=== PATIENT | female | born 1935 | race Caucasian/White ===

== ENCOUNTER 2019-03-08 06:36 | Emergency (ER) | payer OTHER, BC ==
--- OUTSIDE RECORDS SUMMARY | 2019-03-08 06:39 | XMS REPORT ---
:1935 [facility] Address [address] [place] [address] Dr. Soto [address] [place] [address] Care Team Providers Name Role Phone Unavailable Unavailable Unavailable Problems This patient has no known problems. Allergies, Adverse Reactions, Alerts This patient has no known allergies or adverse reactions. Medications This patient has no known medications.
--- OUTSIDE RECORDS SUMMARY | 2019-03-08 06:39 | XMS REPORT | Summary of Care ---
:1935 Author Organization [facility] - Health Address [address] [place] [id number] Care Team Providers Name Role Phone Pcp, Patient Does Not Have A Primary Care Provider Encounter Details Date Type Department Care Team Description 2018 Orders Only [facility] Doctor Unassigned, No 301 [facility] Name [address] [address] Allergies Active Allergy Reactions Severity Noted Date Comments Penicillins Unknown - See comments 09/13/2017 documented as of this encounter (statuses as of 11/02/2018) Medications Medication Sig Dispensed Refills Start Date End Date Status fluticasone-salmeterol Inhale 1 Puff 0 Active (ADVAIR DISKUS) 250-50 at bedtime. mcg/dose inhalation disk acetaminophen-codeine Take 1 tablet 30 tablet 0 08/05/2018 Active (TYLENOL-CODEINE #4) by mouth every 300-60 mg 4 (four) hours tabletIndications: Closed as needed for comminuted Pain. intertrochanteric fracture of left femur, initial encounter documented as of this encounter (statuses as of 11/02/2018) Active Problems Problem Noted Date Hip fracture due to osteoporosis 08/03/2018 Closed comminuted intertrochanteric fracture of left femur 08/02/2018 Closed right hip fracture 09/13/2017 Protein-calorie malnutrition, moderate 09/13/2017 documented as of this encounter (statuses as of 11/02/2018) Social History Tobacco Use Types Packs/Day Years Used Date Never Smoker Smokeless Tobacco: Never Used Alcohol Use Drinks/Week oz/Week Comments No Sex Assigned at Date Recorded Not on file Job Start Date Occupation Industry Not on file Not on file Not on file Travel History Travel Start Travel End No recent travel history available. documented as of this encounter Last Filed Vital Signs Not on filedocumented in this encounter Plan of Treatment Health Maintenance Due Date Last Done Comments DTaP,Tdap,and Td Vaccines (1 - Tdap) 10/16/1954 Zoster Recombinant Vaccine (SHINGRIX) (1 of 2) 10/16/1985 Medicare Wellness Visit 10/16/2000 PNEUMOCOCCAL VACCINES 65+ (1 of 2 - PCV13) 10/16/2000 INFLUENZA VACCINE 11/26/2018 Osteoporosis Screening Completed 12/12/2015 documented as of this encounter Implants Implanted Type Area Doctor Naturopathic Device Shelf Model / Identifier Expiration Date Serial / Lot Acetabular Cup Cup Right: Biomet 05/20/2021 [id number] / Implanted: Qty: 1 on 09/14/2017 by Ashkan Irving MD at [facility] Hip [id number] / [id number] Modular Head Component HIP Right: Biomet 08/31/2027 [id number] / Implanted: Qty: 1 on 09/14/2017 by Ashkan Irving MD at [facility] Hip [id number] / [id number] Hip Fracture Nail NAIL Left: Hip [employer] 03/29/2028 [id number] / Implanted: Qty: 1 on 08/03/2018 by Ashkan Irving MD at [facility] [id number] / [id number] Hip Fracture Nail Lag Screw SCREW Left: Hip [employer] 11/24/2027 [id number] / Implanted: Qty: 1 on 08/03/2018 by Ashkan Irving MD at [facility] [id number] / [id number] Cortical Bone Screw SCREW Left: Hip [employer] 10/24/2026 [id number] / Implanted: Qty: 1 on 08/03/2018 by Ashkan Irving MD at [facility] [id number] / [id number] Standard Femoral Stem Stem Right: Biomet 07/13/2026 [id number] / Implanted: Qty: 1 on 09/14/2017 by Ashkan Irving MD at [facility] Hip [id number] / [id number] documented as of this encounter Procedures Procedure Name Priority Date/Time Associated Diagnosis Comments TELEPHONE Routine 2018 12:01 AM CDT MESSAGE/TRIAGE NOTE documented in this encounter Results Not on filedocumented in this encounter Insurance Payer Benefit Plan Subscriber ID Effective Phone Address Type / Group Dates MEDICARE MEDICARE PART xxxxxxxxxxx 2000-Prese [phone] Medicare A & B nt [id number] [place] VOSS [phone] [place] BCBS [facility] [id number] 2013-Pres [phone] PPO/POS - OUT OF ent [id number] [place] [address] BCBS [facility] [id number] 2009-Prese [phone] [address] PPO/POS - OUT OF nt [id number] [place] [address] documented as of this encounter
--- NOTE | 2019-03-08 08:11 | RAD REPORT ---
EXAM DESCRIPTION: CT - Head Brain Wo Cont - 03/08/2019 6:49 am CLINICAL HISTORY: TRAUMA Trauma, head injury COMPARISON: No comparisons TECHNIQUE: All CT scans are performed using dose optimization technique as appropriate and may inclu de automated exposure control or mA/KV adjustment according to patient size. FINDINGS: No intracranial hemorrhage, hydrocephalus or extra-axial fluid collection.No areas of brai n edema or evidence of midline shift. Multifocal paranasal sinus thickening is present. The calvarium is intact. IMPRESSION: No acute intracranial abnormality. Multifocal paranasal sinus thickening.
--- NOTE | 2019-03-08 08:24 | RAD REPORT ---
EXAM DESCRIPTION: RAD - Chest Single View - 03/08/2019 7:15 am CLINICAL HISTORY: TRAUMA Chest pain. COMPARISON: No comparisons FINDINGS: Portable technique limits examination quality. Multiple calcified nodules are present in both lungs. These most likely represent calcified granuloma ta. The lungs are mildly emphysematous. The heart is normal in size. No displaced fractures.
--- NOTE | 2019-03-08 08:25 | ER ---
Nurse's Notes [facility] [place], [place] Name: Gwendolyn Guillory Age: 83 yrs Sex: Female : 1935 Arrival Date: 03/08/2019 Time: 06:34 Bed 6 Private MD: Diagnosis: Nondisplaced fracture of proximal phalanx of left ring finger;Nondisplaced fracture of proximal phalanx of left little finger;Nondisplaced fracture of base of fifth metacarpal bone. left hand;Laceration without foreign body face Presentation: 03/08 06:35 Presenting complaint: EMS states: unwitnessed fall with lac above left eye and pain ak1 with swelling to left hand. Transition of care: patient was not received from another setting of care. Onset of symptoms was March 08, 2019. Risk Assessment: Do you want to hurt yourself or someone else? Patient reports no desire to harm self or others. Note unknown LOC. Care prior to arrival: None. 06:35 Method Of Arrival: EMS: [facility] ak1 06:35 Acuity: JACINTO 3 ak1 06:39 Mechanism of Injury: Fall unknown, unwitnessed. Trauma event details: Injury occurred ak1 in the [facility], Injury occurred: [facility] facility. 06:40 Mechanism of Injury: Fall. Trauma event details: Injury occurred in the [facility], Injury occurred: in an institution. Injury occurred: March 08, 2019. 06:42 Initial Sepsis Screen: Does the patient meet any 2 criteria? No. Patient's initial sepsis screen is negative. Does the patient have a suspected source of infection? No. Patient's initial sepsis screen is negative. Triage Assessment: 06:38 General: Appears uncomfortable, Behavior is anxious. ak1 Trauma Activation: Alert Physician: ED Physician; Name: Dr. Krueger; Notified At: 06:28; Arrived At: 06:30 Physician: General Surgeon; Name: ; Notified At: 06:28; Arrived At: Physician: Radiology; Name: Zeyad Suárez; Notified At: 06:28; Arrived At: 06:30 Physician: Respiratory; Name: ; Notified At: 06:28; Arrived At: Physician: Eva; Name: ; Notified At: 06:28; Arrived At: Historical: - Allergies: 06:38 No Known Allergies; ak1 - Home Meds: 06:38 Acetaminophen Oral [Active]; Advair Diskus Inhl [Active]; Clonazepam Oral [Active]; ak1 Trazodone Oral [Active]; - PMHx: 06:38 Alzheimers; Dementia; Depression; ak1 - PSHx: 06:38 Unable to obtain; ak1 - Immunization history:: Adult Immunizations unknown. - Social history:: Smoking status: Patient/guardian denies using tobacco. - Immunization history: Last tetanus immunization: unknown. - Ebola Screening: : No symptoms or risks identified at this time. Screenin:39 Abuse screen: Denies threats or abuse. Denies injuries from another. Nutritional wh screening: No deficits noted. Tuberculosis screening: No symptoms or risk factors identified. Fall Risk Fall in past 12 months (25 points). Primary Survey: 06:39 NO uncontrolled hemorrhage observed. A: The patient is alert. Airway: patent. ak1 Breathing/Chest: Respiratory pattern: regular, Respiratory effort: spontaneous, unlabored. Circulation: Skin color: pink, Skin temperature: warm, dry. Disability Alert. Exposure/Environment: A warming method has been applied: A warm blanket has been provided to the patient. 06:40 NO uncontrolled hemorrhage observed. A: The patient is alert. Airway: patent. wh Breathing/Chest: Respiratory pattern: regular, Respiratory effort: spontaneous, unlabored, Breath sounds: clear. Circulation: Heart tones present. Pulses: palpable . Disability Alert. Exposure/Environment: All clothing and personal items were removed. There is no evidence of uncontrolled external bleeding. Obvious injury(ies) are noted at this time: Laceration to Right eyebrow. Secondary Survey: 06:39 HEENT: Head Other lac above left eye Face No injury/deformity Eyes: No injury or ak1 deformity noted. Ears: clear Nose: clear Throat: is clear. Gastrointestinal: No deficits noted. Abdomen is non-distended. : No signs and/or symptoms were reported regarding the genitourinary system. Musculoskeletal: Swelling present in left hand. Assessment: 06:46 General: Appears in no apparent distress. Behavior is calm, cooperative. Pain: wh Complains of pain in left hand Pain does not radiate. Neuro: Level of Consciousness is awake, alert, obeys commands, Oriented to person, place. Cardiovascular: Heart tones S1 S2 Capillary refill < 3 seconds. Respiratory: Airway is patent Respiratory effort is even, unlabored, Respiratory pattern is regular, symmetrical, Breath sounds are clear bilaterally. GI: Abdomen is flat, non-distended. : No signs and/or symptoms were reported regarding the genitourinary system. EENT: No signs and/or symptoms were reported regarding the EENT system. Derm: Skin is intact, is healthy with good turgor, Skin is pink, warm \T\ dry. normal, Laceration in upper left eye. Musculoskeletal: left 5th finger Reports pain in left hand. 07:20 Reassessment: attempt to remove ring from left ring finger, swelling to left fingers, sg unable to remove ring at this time, Keenan ROGER notified. 07:30 Reassessment: laceration to left eye brow cleaned with saline, dressing applied, sg awaiting PA for laceration repair. 08:10 Reassessment: left hand remains elevated with Coban applied to ring finger in an sg attempt to remove the ring at this time. Vital Signs: 06:38 Weight 65.77 kg (R); Height 5 ft. 2 in. (157.48 cm) (R); ak1 06:42 BP 115 / 72; Pulse 79; Resp 18; Pulse Ox 95% ; wh 06:38 Body Mass Index 26.52 (65.77 kg, 157.48 cm) ak1 Shenandoah Coma Score: 06:39 Eye Response: spontaneous(4). Verbal Response: confused(4). Motor Response: obeys ak1 commands(6). Total: 14. 06:43 Eye Response: spontaneous(4). Verbal Response: oriented(5). Motor Response: obeys commands(6). Total: 15. 06:39 pt is normally confused ak1 Trauma Score (Adult): 06:39 Eye Response: spontaneous(1); Verbal Response: confused(1); Motor Response: obeys ak1 commands(2); Systolic BP: > 89 mm Hg(4); Respiratory Rate: 10 to 29 per min(4); Shenandoah Score: 14; Trauma Score: 12; pt normally is confused. ED Course: 06:34 Patient arrived in ED. ak1 06:35 Keenan Arechiga PA is PHCP. jr8 06:35 Roland Krueger MD is Attending Physician. jr8 06:36 Roland Krueger MD is Attending Physician. jr8 06:36 Triage completed. ak1 06:38 Arm band placed on Patient placed in an exam room, on a stretcher, on pulse oximetry, ak1 Patient notified of wait time. 06:39 Manuel Pina is Primary Nurse. wh 06:43 Patient has correct armband on for positive identification. Placed in gown. Bed in low wh position. Call light in reach. Side rails up X 1. Pulse ox on. NIBP on. 06:43 Patient maintains SpO2 saturation greater than 95% on room air. wh 06:43 Thermoregulation: warm blanket given to patient. wh 06:50 CT Head Brain wo Cont In Process Unspecified. EDMS 07:16 XRAY Hand LEFT 3 View In Process Unspecified. EDMS 07:16 XRAY Pelvis In Process Unspecified. EDMS 07:16 XRAY Chest (1 view) In Process Unspecified. EDMS 07:43 Primary Nurse role handed off by Manuel Pina sg 07:43 Alberto Gonzales, RN is Primary Nurse. sg 08:21 Ashkan Flynn MD is Referral Physician. jr8 09:15 Orthoglass splint: Ulnar gutter/Boxer splint applied on left forearm. Radial pulse jb1 present and within normal limits before and after application of splint. Capillary refill was three seconds before and after application of splint. 10:13 No provider procedures requiring assistance completed. Patient did not have IV access sg during this emergency room visit. Administered Medications: 07:43 Drug: [facility] 5 mg-325 mg 1 tabs Route: PO; sg Outcome: 08:24 Discharge ordered by . jr8 10:13 Patient left the ED. ss 10:13 Discharged to home via wheelchair, with family. sg 10:13 Condition: stable 10:13 Discharge instructions given to patient, family, Instructed on discharge instructions, follow up and referral plans. medication usage, Demonstrated understanding of instructions, follow-up care, medications, Prescriptions given X 1. Signatures: Dispatcher [employer] EDMS Ho Kimble jb1 Alberto Gonzales RN RN sg Smirch, Shelby, RN RN ss Keenan Arechiga PA PA jr8 Jaky Colin RN RN ak1 Manuel Pina
--- NOTE | 2019-03-08 08:25 | EDPHYS ---
Physician Documentation [facility] Name: Gwendolyn Guillory Age: 83 yrs Sex: Female : 1935 Arrival Date: 03/08/2019 Time: 06:34 Bed 6 Private MD: ED Physician Roland Krueger HPI: 03/08 07:35 This 83 yrs old Female presents to ER via EMS with complaints of Fall Injury. jr8 07:35 Details of fall: The patient fell from an upright position, while standing. Onset: The jr8 symptoms/episode began/occurred acutely, today. Associated injuries: The patient sustained injury to the head, left hand. Severity of symptoms: At their worst the symptoms were moderate, in the emergency department the symptoms are unchanged. It is unknown whether or not the patient has had similar symptoms in the past. It is unknown whether or not the patient has recently seen a physician. Fall with unknown LOC at PR. Called EMS for evaluation as patient was found to have laceration to left eyebrow and swelling to left hand. Patient with dementia history but at baseline currently per EMS and PR staff . Historical: - Allergies: 06:38 No Known Allergies; ak1 - Home Meds: 06:38 Acetaminophen Oral [Active]; Advair Diskus Inhl [Active]; Clonazepam Oral [Active]; ak1 Trazodone Oral [Active]; - PMHx: 06:38 Alzheimers; Dementia; Depression; ak1 - PSHx: 06:38 Unable to obtain; ak1 - Immunization history:: Adult Immunizations unknown. - Social history:: Smoking status: Patient/guardian denies using tobacco. - Immunization history: Last tetanus immunization: unknown. - Ebola Screening: : No symptoms or risks identified at this time. ROS: 07:35 Unable to obtain ROS due to baseline dementia. jr8 Exam: 07:35 Eyes: Pupils equal round and reactive to light, extra-ocular motions intact. Lids and jr8 lashes normal. Conjunctiva and sclera are non-icteric and not injected. Cornea within normal limits. Periorbital areas with no swelling, redness, or edema. ENT: Nares patent. No nasal discharge, no septal abnormalities noted. Tympanic membranes are normal and external auditory canals are clear. Oropharynx with no redness, swelling, or masses, exudates, or evidence of obstruction, uvula midline. Mucous membranes moist. Neck: Trachea midline, no thyromegaly or masses palpated, and no cervical lymphadenopathy. Supple, full range of motion without nuchal rigidity, or vertebral point tenderness. No Meningismus. Chest/axilla: Normal chest wall appearance and motion. Nontender with no deformity. No lesions are appreciated. Cardiovascular: Regular rate and rhythm with a normal S1 and S2. No gallops, murmurs, or rubs. Normal PMI, no JVD. No pulse deficits. Respiratory: Lungs have equal breath sounds bilaterally, clear to auscultation and percussion. No rales, rhonchi or wheezes noted. No increased work of breathing, no retractions or nasal flaring. Abdomen/GI: Soft, non-tender, with normal bowel sounds. No distension or tympany. No guarding or rebound. No evidence of tenderness throughout. Back: No spinal tenderness. No costovertebral tenderness. Full range of motion. Skin: Warm, dry with normal turgor. Normal color with no rashes, no lesions, and no evidence of cellulitis. Neuro: Awake and alert, GCS 14, oriented to person, place, time, and situation. Cranial nerves II-XII grossly intact. Motor strength 5/5 in all extremities. Sensory grossly intact. 07:35 Head/face: Noted is a laceration(s), that is deep, that is linear, 2 cm(s), of the lateral aspect left eyebrow . 07:35 Musculoskeletal/extremity: Extremities: grossly normal except: noted in the left hand: swelling and tenderness to lateral aspect left hand to the 4th and 5th digits and metacarpals , ROM: intact in all extremities, Circulation is intact in all extremities. Sensation intact. Vital Signs: 06:38 Weight 65.77 kg (R); Height 5 ft. 2 in. (157.48 cm) (R); ak1 06:42 BP 115 / 72; Pulse 79; Resp 18; Pulse Ox 95% ; wh 06:38 Body Mass Index 26.52 (65.77 kg, 157.48 cm) ak1 Revere Coma Score: 06:39 Eye Response: spontaneous(4). Verbal Response: confused(4). Motor Response: obeys ak1 commands(6). Total: 14. 06:43 Eye Response: spontaneous(4). Verbal Response: oriented(5). Motor Response: obeys wh commands(6). Total: 15. 06:39 pt is normally confused ak1 Trauma Score (Adult): 06:39 Eye Response: spontaneous(1); Verbal Response: confused(1); Motor Response: obeys ak1 commands(2); Systolic BP: > 89 mm Hg(4); Respiratory Rate: 10 to 29 per min(4); Revere Score: 14; Trauma Score: 12; pt normally is confused. Procedures: 07:35 Splinting: Splint applied to left hand using Orthoglass splint, applied by tech. nurse. jr8 Examined by me, post splint application: neurovascular intact, 2+ distal pulses palpable, brisk capillary refill noted, Patient tolerated well. Laceration: 07:35 Wound Repair of 2cm ( 0.8in ) subcutaneous laceration to left face. Distal jr8 neuro/vascular/tendon intact. Anesthesia: Local anesthetic administered with 2 mls of 1% lidocaine. Skin closed with 2 4-0 Prolene using interrupted sutures and sterile technique. Patient tolerated well. MDM: 06:36 Patient medically screened. jr8 07:39 Data reviewed: vital signs, nurses notes, radiologic studies, CT scan, plain films. jr8 Data interpreted: Pulse oximetry: on room air is 95 %. Interpretation: normal. Test interpretation: by ED physician or midlevel provider: plain radiologic studies, Negative pelvis and CXR. Fractures noted left hand at the base of the 4th proximal digit and base of the 5th proximal digit. Base of the 5th metacarpal fracture also noted. All with minimal or no displacement . Counseling: I had a detailed discussion with the patient and/or guardian regarding: the historical points, exam findings, and any diagnostic results supporting the discharge/admit diagnosis, radiology results, the need for outpatient follow up, a family practitioner, to return to the emergency department if symptoms worsen or persist or if there are any questions or concerns that arise at home. 03/08 06:37 Order name: CT Head Brain wo Cont; Complete Time: 08:20 jr8 03/08 06:37 Order name: XRAY Hand LEFT 3 View; Complete Time: 08:46 jr8 03/08 06:37 Order name: XRAY Pelvis; Complete Time: 08:46 jr8 03/08 06:37 Order name: XRAY Chest (1 view); Complete Time: 08:31 jr8 03/08 07:43 Order name: Ulnar Gutter splint; Complete Time: 09:17 sg Administered Medications: 07:43 Drug: [place] 5 mg-325 mg 1 tabs Route: PO; sg Disposition: 03/08/19 08:24 Discharged to Home. Impression: Nondisplaced fracture of proximal phalanx of left ring finger, Nondisplaced fracture of proximal phalanx of left little finger, Nondisplaced fracture of base of fifth metacarpal bone. left hand, Laceration without foreign body face . - Condition is Stable. - Discharge Instructions: Finger Fracture, Metacarpal Fracture, Facial Laceration. - Prescriptions for Elimite 5 % Topical Cream - apply 1 application by TOPICAL route one time Wash after 12 hours.; 60 gram. - Medication Reconciliation Form, Thank You Letter, Antibiotic Education, Prescription Opioid Use form. - Follow up: Ashkan Flynn MD; When: 5 - 6 days; Reason: Recheck today's complaints, Continuance of care, Re-evaluation by your physician. - Problem is new. - Symptoms have improved. - Notes: Tylenol and Motrin for pain Addendum: 03/13/2019 21:24 Co-signature as Attending Physician, Roland Krueger MD I agree with the assessment and w a plan of care. Signatures: Dispatcher [employer] EDMS Alberto Gonzales RN RN Theresa Gomes RN RN Keenan Arechiga PA PA jr8 Jaky Colin RN RN ak1 Roland Krueger MD MD nh Corrections: (The following items were deleted from the chart) 03/08 08:24 08:24 03/08/2019 08:24 Discharged to Home. Impression: Nondisplaced fracture of jr8 proximal phalanx of left ring finger; Nondisplaced fracture of proximal phalanx of left little finger; Nondisplaced fracture of base of fifth metacarpal bone. left hand. Condition is Stable. Forms are Medication Reconciliation Form, Thank You Letter, Antibiotic Education, Prescription Opioid Use. Follow up: Ashkan Flynn; When: 5 - 6 days; Reason: Recheck today's complaints, Continuance of care, Re-evaluation by your physician. Problem is new. Symptoms have improved. jr8 10:13 08:24 03/08/2019 08:24 Discharged to Home. Impression: Nondisplaced fracture of ss proximal phalanx of left ring finger; Nondisplaced fracture of proximal phalanx of left little finger; Nondisplaced fracture of base of fifth metacarpal bone. left hand; Laceration without foreign body face . Condition is Stable. Forms are Medication Reconciliation Form, Thank You Letter, Antibiotic Education, Prescription Opioid Use. Follow up: Ashkan Flynn; When: 5 - 6 days; Reason: Recheck today's complaints, Continuance of care, Re-evaluation by your physician. Problem is new. Symptoms have improved. jr8
--- NOTE | 2019-03-08 08:34 | RAD REPORT ---
EXAM DESCRIPTION: RAD - Pelvis - 03/08/2019 7:15 am CLINICAL HISTORY: TRAUMA Fall, pelvic pain COMPARISON: No comparisons FINDINGS: Right total hip arthroplasty is present. Hardware is present in the proximal left femur. I rregularity of the superior inferior pubic ramus near the pubic symphysis is present, age uncertain.
[2019-03-08] MEDS ORDERED: LIDOCAINE 1% MPF 5 ML VIAL ONE (08:35)
--- NOTE | 2019-03-08 08:36 | RAD REPORT ---
EXAM DESCRIPTION: RAD - Hand Left 3 View - 03/08/2019 7:15 am CLINICAL HISTORY: PAIN Trauma, pain COMPARISON: No comparisons FINDINGS: Fracture is present involving base of the fourth and fifth proximal phalanges. Fractures a lso likely present at the base of the fifth metacarpal. The bones are osteopenic.
[2019-03-08 11:26] VITALS: BP 115/72; O2SAT 95
== END 2019-03-08 10:13 | disposition home or self-care (01) ==
LOC: ER 06:36
PROC: 0JQ10ZZ Repair Face Subcutaneous Tissue and Fascia, Open Approach (ICD-10-PCS; principal; 2019-03-08)
PROC: 2W3DX1Z Immobilization of Left Lower Arm using Splint (ICD-10-PCS; 2019-03-08)
DX: S62.615A Displaced fracture of proximal phalanx of left ring finger, initial encounter for closed fracture (principal); S62.617A Displaced fracture of proximal phalanx of left little finger, initial encounter for closed fracture; S62.317A Displaced fracture of base of fifth metacarpal bone, left hand, initial encounter for closed fracture; S01.112A Laceration without foreign body of left eyelid and periocular area, initial encounter; W19.XXXA Unspecified fall, initial encounter; Y93.9 Activity, unspecified; Y92.9 Unspecified place or not applicable; G30.9 Alzheimer's disease, unspecified; F02.80 Dementia in other diseases classified elsewhere, unspecified severity, without behavioral disturbance, psychotic disturbance, mood disturbance, and anxiety
CPT/HCPCS: 70450; 71045; 72170; 99284

== ENCOUNTER 2019-05-07 13:21 | Emergency (ER) | payer OTHER, BC ==
--- OUTSIDE RECORDS SUMMARY | 2019-05-07 13:24 | XMS REPORT ---
:1935 [facility] Address [address] Soto [address] [place] [id number] Care Team Providers Name Role Phone Unavailable Unavailable Unavailable Problems This patient has no known problems. Allergies, Adverse Reactions, Alerts This patient has no known allergies or adverse reactions. Medications This patient has no known medications.
--- NOTE | 2019-05-07 14:43 | RAD REPORT ---
EXAM DESCRIPTION: RAD - Elbow Left 3 View - 05/07/2019 2:35 pm CLINICAL HISTORY: Left elbow pain FINDINGS: No fracture or dislocation is seen. The bones are osteoporotic. Soft tissue swelling
--- NOTE | 2019-05-07 14:44 | EDPHYS ---
Physician Documentation [facility] Name: Gwendolyn Guillory Age: 83 yrs Sex: Female : 1935 Arrival Date: 05/07/2019 Time: 13:29 Bed 23 Private MD: ED Physician Mehrdad Garza HPI: 05/07 14:29 This 83 yrs old Female presents to ER via EMS with complaints of Arm Problem. jr8 14:29 Onset: The symptoms/episode began/occurred gradually, 8 week(s) ago. Treatment prior to jr8 arrival includes: splinting the affected extremity. Modifying factors: The symptoms are alleviated by nothing. the symptoms are aggravated by nothing. Associated signs and symptoms: The patient has no apparent associated signs or symptoms. Severity of symptoms: At their worst the symptoms were moderate, in the emergency department the symptoms are unchanged. The patient has not experienced similar symptoms in the past. The patient has not recently seen a physician. Patient had multiple fractures to left hand about 8 weeks ago. Stated that she was splinted at that time and was told to f/u with Orthopedics which she did per son. Stated that they told her to keep in in splint for 6-8 weeks. Was brought to ED today for concern of swelling and blistering to arm and hand . Historical: - Allergies: 15:13 PENICILLINS; ph - PMHx: 15:13 Alzheimers; Dementia; Depression; ph - Immunization history:: Adult Immunizations up to date. - Coronavirus screen:: The patient has NOT traveled to [place], [place], or [place] in the past 14 days. The patient has NOT had contact with known/suspected case of Coronavirus?. - Social history:: Smoking status: Patient denies any tobacco usage or history of. - Ebola Screening: : No symptoms or risks identified at this time. ROS: 14:29 Eyes: Negative for injury, pain, redness, and discharge, ENT: Negative for injury, jr8 pain, and discharge, Neck: Negative for injury, pain, and swelling, Cardiovascular: Negative for chest pain, palpitations, and edema, Respiratory: Negative for shortness of breath, cough, wheezing, and pleuritic chest pain, Abdomen/GI: Negative for abdominal pain, nausea, vomiting, diarrhea, and constipation, Back: Negative for injury and pain, Skin: Negative for injury, rash, and discoloration, Neuro: Negative for headache, weakness, numbness, tingling, and seizure. 14:29 MS/extremity: Positive for erythema, swelling, of the left hand and left arm. Exam: 14:29 Eyes: Pupils equal round and reactive to light, extra-ocular motions intact. Lids and jr8 lashes normal. Conjunctiva and sclera are non-icteric and not injected. Cornea within normal limits. Periorbital areas with no swelling, redness, or edema. ENT: Nares patent. No nasal discharge, no septal abnormalities noted. Tympanic membranes are normal and external auditory canals are clear. Oropharynx with no redness, swelling, or masses, exudates, or evidence of obstruction, uvula midline. Mucous membranes moist. Neck: Trachea midline, no thyromegaly or masses palpated, and no cervical lymphadenopathy. Supple, full range of motion without nuchal rigidity, or vertebral point tenderness. No Meningismus. Cardiovascular: Regular rate and rhythm with a normal S1 and S2. No gallops, murmurs, or rubs. Normal PMI, no JVD. No pulse deficits. Respiratory: Lungs have equal breath sounds bilaterally, clear to auscultation and percussion. No rales, rhonchi or wheezes noted. No increased work of breathing, no retractions or nasal flaring. Abdomen/GI: Soft, non-tender, with normal bowel sounds. No distension or tympany. No guarding or rebound. No evidence of tenderness throughout. Back: No spinal tenderness. No costovertebral tenderness. Full range of motion. Skin: Warm, dry with normal turgor. Normal color with no rashes, no lesions, and no evidence of cellulitis. Neuro: Awake and alert, GCS 15, oriented to person, place, time, and situation. Cranial nerves II-XII grossly intact. Motor strength 5/5 in all extremities. Sensory grossly intact. Cerebellar exam normal. Normal gait. 14:29 Musculoskeletal/extremity: Extremities: grossly normal except: noted in the left arm: Patient has mild erythema with moderate edema noted to dorsum of left hand along with edema to left elbow region. Patient has full ROM to elbow and wrist. Decreased ROM to hand secondary to hand and previous fracture. 2+ pulses radial bilaterally with normal sensation. No pain at this time . Vital Signs: 13:43 BP 114 / 53; Pulse 77; Resp 18; Temp 98.1; Pulse Ox 100% on R/A; ph 15:13 BP 115 / 62; Pulse 68; Resp 18; Temp 98.0; Pulse Ox 99% on R/A; ph MDM: 13:33 Patient medically screened. jr8 14:29 Data reviewed: vital signs, nurses notes, radiologic studies, plain films. Data jr8 interpreted: Pulse oximetry: on room air is 100 %. Interpretation: normal. Counseling: I had a detailed discussion with the patient and/or guardian regarding: the historical points, exam findings, and any diagnostic results supporting the discharge/admit diagnosis, the need for outpatient follow up, a orthopedic surgeon, to return to the emergency department if symptoms worsen or persist or if there are any questions or concerns that arise at home. ED course: Discussed with patient and family that edema noted to hand and elbow is secondary to splint and dependency on left arm. Recommended removal of splint at this time and to f/u with orthopedics . 05/07 13:46 Order name: XRAY Hand LEFT [facility] 05/07 13:46 Order name: XRAY Elbow LEFT [facility] 05/07 15:21 Order name: RAD; Complete Time: 15:29 EDMS 05/07 15:21 Order name: RAD; Complete Time: 15:29 EDMS Administered Medications: 15:40 Drug: hydrOXYzine 50 mg Route: PO; ph 15:41 Follow up: Response: No adverse reaction; Medication administered at discharge. ph 15:40 Drug: predniSONE 20 mg Route: PO; ph 15:41 Follow up: Response: No adverse reaction; Medication administered at discharge. ph Disposition: 16:46 Co-signature as Attending Physician, Mehrdad Garza MD I agree with the assessment and marj plan of care. Disposition: 05/07/19 14:44 Discharged to Home. Impression: Left upper extremity edema secondary to cast . - Condition is Stable. - Discharge Instructions: Edema, Metacarpal Fracture. - Prescriptions for Hydroxyzine HCl 25 mg Oral Tablet - take 1 tablet by ORAL route every 6 hours As needed; 30 tablet. - Medication Reconciliation Form, Thank You Letter, Antibiotic Education, Prescription Opioid Use form. - Follow up: Ashkan Flynn MD; When: 2 - 3 days; Reason: Recheck today's complaints, Continuance of care, Re-evaluation by your physician. - Problem is new. - Symptoms have improved. Signatures: Dispatcher [employer] EDMehrdad Ryan MD MD cha Roszak, Josh, PA PA jr8 Sravani Otoole, RN RN ph Corrections: (The following items were deleted from the chart) 15:41 14:44 05/07/2019 14:44 Discharged to Home. Impression: Left upper extremity edema ph secondary to cast . Condition is Stable. Forms are Medication Reconciliation Form, Thank You Letter, Antibiotic Education, Prescription Opioid Use. Follow up: Ashkan Flynn; When: 2 - 3 days; Reason: Recheck today's complaints, Continuance of care, Re-evaluation by your physician. Problem is new. Symptoms have improved. jr8
--- NOTE | 2019-05-07 14:44 | ER ---
Nurse's Notes [facility] Name: Gwendolyn Guillory Age: 83 yrs Sex: Female : 1935 Arrival Date: 05/07/2019 Time: 13:29 Bed 23 Private MD: Diagnosis: Left upper extremity edema secondary to cast Presentation: 05/07 13:31 Presenting complaint: EMS states: Pt from [facility], fractured hand L hand in Feb ph 19, skilled nursing staff called EMS because of swelling and redness to L hand, upon arrival to ED pt noted to have a temporary splint which may have been placed in ED at time of fracture, pt hx of dementia, A\\T\\O to person only at baseline. Transition of care: patient was not received from another setting of care. Onset of symptoms was May 07, 2019. Risk Assessment: Do you want to hurt yourself or someone else? Patient reports no desire to harm self or others. Initial Sepsis Screen: Does the patient meet any 2 criteria? No. Patient's initial sepsis screen is negative. Does the patient have a suspected source of infection? No. Patient's initial sepsis screen is negative. Care prior to arrival: None. 13:31 Method Of Arrival: EMS: [facility] ph 13:31 Acuity: JACINTO 3 ph 13:31 Acuity: JACINTO 2 ph Historical: - Allergies: 15:13 PENICILLINS; ph - PMHx: 15:13 Alzheimers; Dementia; Depression; ph - Immunization history:: Adult Immunizations up to date. - Coronavirus screen:: The patient has NOT traveled to [place], [place], or [place] in the past 14 days. The patient has NOT had contact with known/suspected case of Coronavirus?. - Social history:: Smoking status: Patient denies any tobacco usage or history of. - Ebola Screening: : No symptoms or risks identified at this time. Screenin:11 Abuse screen: Denies threats or abuse. Denies injuries from another. Nutritional ph screening: No deficits noted. Tuberculosis screening: No symptoms or risk factors identified. Fall Risk None identified. Assessment: 14:00 General: Appears in no apparent distress. comfortable, well groomed, Behavior is calm, ph cooperative, appropriate for age. Pain: Denies pain. Neuro: Level of Consciousness is awake, alert, obeys commands, Oriented to person, place, time, situation. Cardiovascular: Capillary refill < 3 seconds in bilateral fingers Patient's skin is warm and dry. Pulses are palpable in right radial artery and left radial artery Edema is 2+ to left upper arm, left elbow and left fingers. Respiratory: Airway is patent Respiratory effort is even, unlabored, Respiratory pattern is regular, symmetrical. Derm: Skin is fragile, is thin, Skin is pink, warm \\T\\ dry. Rash noted that is itchy, red, raised, urticaria, on back, chest, right arm, left arm, right leg, left leg and neck son states, " She has had that rash for a while but we can't figure out where it's coming from." Pt reports itching. Musculoskeletal: Circulation, motion, and sensation intact. Range of motion: intact in all extremities, redness and swelling noted to L hand and L upper arm. 15:30 Reassessment: Patient and/or family updated on plan of care and expected duration. Pain ph level reassessed. Pt awake and alert, oriented to person only, when preparing pt for discharge she began to c/o sever itching to arms, neck and back, noted to be anxious and aggressively scratching, ERP notified and verbal order received for PO medications, pt also prescribed medication for itching. Vital Signs: 13:43 BP 114 / 53; Pulse 77; Resp 18; Temp 98.1; Pulse Ox 100% on R/A; ph 15:13 BP 115 / 62; Pulse 68; Resp 18; Temp 98.0; Pulse Ox 99% on R/A; ph ED Course: 13:29 Patient arrived in ED. ph 13:33 Keenan Arechiga PA is PHCP. jr8 13:33 Mehrdad Garza MD is Attending Physician. jr8 13:36 Triage completed. ph 14:41 Ashkan Flynn MD is Referral Physician. jr8 14:51 Sravani Otoole RN is Primary Nurse. ph 15:12 Arm band placed on. ph 15:12 Patient has correct armband on for positive identification. Bed in low position. Call ph light in reach. Side rails up X2. Pulse ox on. NIBP on. 15:12 No provider procedures requiring assistance completed. Patient did not have IV access ph during this emergency room visit. Administered Medications: 15:40 Drug: hydrOXYzine 50 mg Route: PO; ph 15:41 Follow up: Response: No adverse reaction; Medication administered at discharge. ph 15:40 Drug: predniSONE 20 mg Route: PO; ph 15:41 Follow up: Response: No adverse reaction; Medication administered at discharge. ph Outcome: 14:44 Discharge ordered by MD. mckeon 15:40 Discharged to skilled nursing. d/c w/ family ph 15:40 Condition: good 15:40 Discharge instructions given to family, Instructed on discharge instructions, follow up and referral plans. medication usage, Demonstrated understanding of instructions, follow-up care, medications, Prescriptions given X 1. 15:41 Patient left the ED. ph Signatures: Keenan Arechiga PA PA jr8 Sravani Otoole RN RN ph Corrections: (The following items were deleted from the chart) 18:45 14:00 Derm: Skin is fragile, is thin, Skin is pink, warm \\T\\ dry. ph ph
--- NOTE | 2019-05-07 14:45 | RAD REPORT ---
EXAM DESCRIPTION: RAD -Hand Left 3 View - 05/07/2019 2:35 pm CLINICAL HISTORY: Left hand pain FINDINGS: Osteoporosis Mildly displaced subacute fractures involve the bases of the fourth and fifth proximal phalanges. Nondisplaced subacute fracture involves the base of the fifth metacarpal. No dislocation
[2019-05-07] MEDS ORDERED: predniSONE 20 MG TAB ONE (15:33)
[2019-05-07] MEDS ORDERED: hydrOXYzine HCL 25 MG TAB ONE (15:33)
[2019-05-08 02:15] VITALS: BP 115/62; TEMP 98; O2SAT 99
== END 2019-05-07 15:41 | disposition home or self-care (01) ==
LOC: ER 13:21
DX: R60.9 Edema, unspecified (principal); G30.9 Alzheimer's disease, unspecified; F02.80 Dementia in other diseases classified elsewhere, unspecified severity, without behavioral disturbance, psychotic disturbance, mood disturbance, and anxiety; Z88.0 Allergy status to penicillin
CPT/HCPCS: 99284; J7512

== ENCOUNTER 2019-09-06 14:13 | Emergency (ER) | payer BC ==
--- OUTSIDE RECORDS SUMMARY | 2019-09-06 14:17 | XMS REPORT | Continuity of Care Document ---
:1935 Author Organization [facility] t Address [address] [place] [address] Care Team Providers Name Role Phone Antonia Farrell Attending Clinician Problems This patient has no known problems. Allergies, Adverse Reactions, Alerts This patient has no known allergies or adverse reactions. Medications This patient has no known medications. Procedures This patient has no known procedures. Encounters Start End Encounter Admission Attending Care Care Encounter Source Date/Time Date/Time Type Type Clinicians Facility Department ID 2019-05-08 2019-05-08 Office KARTHIKEYAN Walsh [id number] 10:33:34 10:48:34 Visit [facility] [id number] Surgical [id number] Special [id number] [address] Results This patient has no known results.
[2019-09-06] MEDS ORDERED: ONDANSETRON 4 MG/2 ML VIAL ONE ×2 (14:44→20:07)
[2019-09-06] MEDS ORDERED: MORPHINE 4 MG/ML SYR ONE ×2 (14:44→20:07)
--- NOTE | 2019-09-06 16:08 | RAD REPORT ---
EXAM DESCRIPTION: RAD - Pelvis - 09/06/2019 3:29 pm CLINICAL HISTORY: left hip pain COMPARISON: None FINDINGS: AP pelvis, left hip and left femur - multiple projections Right total hip arthroplasty is noted. Proximal femoral nail is present on the left. Mildly displaced oblique fracture of the distal left femur is seen.
[2019-09-06 18:09] LABS: Absolute Lymphocytes (CBC) 0.7 K/uL (0.7-4.9); Basophils % 0.3 % (0-1.3); Hematocrit 38.4 % (36.0-45.0); Lymphocytes % 6.1 % (15.3-44.8); MPV 7.6 fL (7.6-11.3); RBC Red Blood Cell Count 4.11 M/uL (3.86-4.86)
[2019-09-06 18:10] LABS: Protime INR 0.92
[2019-09-06 18:33] LABS: Potassium 4.3 mmol/L (3.5-5.1)
--- NOTE | 2019-09-06 18:52 | ER ---
Nurse's Notes [facility] Name: Gwendolyn Guillory Age: 83 yrs Sex: Female : 1935 Arrival Date: 09/06/2019 Time: 14:20 Bed 16 Private MD: Diagnosis: Distal left femur fracture Presentation: 09/05 14:21 Chief complaint: EMS states: pt fell against the door in her room at [facility]. Pt with c/o ah Left leg pain. Coronavirus screen: Proceed with normal triage. Ebola Screen: No symptoms or risks identified at this time. Initial Sepsis Screen: Does the patient meet any 2 criteria? No. Patient's initial sepsis screen is negative. Does the patient have a suspected source of infection? No. Patient's initial sepsis screen is negative. Risk Assessment: Do you want to hurt yourself or someone else? Patient reports no desire to harm self or others. Onset of symptoms was September 06, 2019. 14:21 Method Of Arrival: EMS: [facility] 14:21 Acuity: JACINTO 2 hb 14:24 Care prior to arrival: Splint applied. Medication(s) given: zofran 4 mg, fentanyl 100mg ah IV IV initiated. 20 GA, in the right hand. 14:25 Mechanism of Injury: Fall from standing position. Trauma event details: Injury occurred in the [facility], Injury occurred: at home. Injury occurred: September 06, 2019. 09/06 00:42 Care prior to arrival:. Trauma Activation: Alert Physician: ED Physician; Name: ; Notified At: ; Arrived At: Physician: General Surgeon; Name: ; Notified At: ; Arrived At: Physician: Radiology; Name: ; Notified At: ; Arrived At: Physician: Respiratory; Name: ; Notified At: ; Arrived At: Physician: Lab; Name: ; Notified At: ; Arrived At: Historical: - Allergies: 09/05 14:24 PENICILLINS; - PMHx: 14:24 Alzheimers; Dementia; Depression; - Immunization history:: Adult Immunizations up to date. - Social history:: Smoking status: unknown. - Immunization history: Last tetanus immunization: unknown. Screenin:20 Abuse screen: Denies threats or abuse. Denies injuries from another. Tuberculosis hb screening: No symptoms or risk factors identified. 15:08 Nutritional screening: No deficits noted. Fall Risk Total Rodriguez Fall Scale indicates hb High Risk Score (45 or more points). Fall prevention measures have been instituted. Side Rails Up X 2 Frequent Obs/Assessments Occuring Family Present and informed to notify staff if the need to leave the bedside As available patient and family educated on Fall Prevention Program and Strategies. Primary Survey: 14:20 NO uncontrolled hemorrhage observed. A: The patient is alert. Airway: patent. hb Breathing/Chest: Respiratory pattern: regular, Respiratory effort: spontaneous, unlabored, Chest inspection: symmetrical rise and fall of the chest. Circulation: Pulses: palpable . Skin color: pink, Skin temperature: warm, dry. Disability Alert. Exposure/Environment: There is no evidence of uncontrolled external bleeding. A warming method has been applied: A warm blanket has been provided to the patient. 14:20 Reassessment Breathing/Chest Respiratory pattern Regular Respiratory effort Spontaneous vc Breath sounds Clear Chest inspection Symmetrical. 15:00 Reassessment Airway Airway Patent Breathing/Chest Respiratory pattern Regular Breath hb sounds Clear Diminished Chest inspection Symmetrical Circulation Pulses Palpable Color [place] Disability Alert. 16:00 Reassessment Airway Airway Patent Breathing/Chest Respiratory pattern Regular hb Respiratory effort Spontaneous Unlabored Chest inspection Symmetrical Circulation Pulses Palpable Disability Alert. Secondary Survey: 14:20 HEENT: No deficits noted. Gastrointestinal: No deficits noted. : No deficits noted. hb No signs and/or symptoms were reported regarding the genitourinary system. Musculoskeletal: Reports severe left hip and left upper leg pain, shortening and external rotation of left leg noted. Assessment: 14:25 Reassessment: son at bedside. ah 14:30 General: Appears in no apparent distress. uncomfortable, Behavior is cooperative, hb agitated. Pain: Pain currently is 10 out of 10 on a pain scale. Neuro: Level of Consciousness is awake, alert, obeys commands, confused, Oriented to person, place. EENT: No deficits noted. No signs and/or symptoms were reported regarding the EENT system. Cardiovascular: Heart tones S1 S2 present Capillary refill < 3 seconds Patient's skin is warm and dry. Respiratory: Airway is patent Respiratory effort is even, unlabored, Respiratory pattern is regular, symmetrical, Breath sounds are clear bilaterally. GI: No signs and/or symptoms were reported involving the gastrointestinal system. Abdomen is non-distended. : No deficits noted. No signs and/or symptoms were reported regarding the genitourinary system. Derm: Skin is pink, warm \T\ dry. Musculoskeletal: shortening and external rotation of left leg noted. 15:30 Reassessment: Patient appears in no apparent distress at this time. No changes from hb previously documented assessment. Patient and/or family updated on plan of care and expected duration. Pain level reassessed. 16:30 Reassessment: Patient appears in no apparent distress at this time. No changes from hb previously documented assessment. Patient and/or family updated on plan of care and expected duration. Pain level reassessed. 17:30 Reassessment: Patient appears in no apparent distress at this time. Patient and/or vc family updated on plan of care and expected duration. Pain level reassessed. Patient states symptoms have improved. 18:20 Reassessment: Patient appears in no apparent distress at this time. Patient and/or vc family updated on plan of care and expected duration. Pain level reassessed. Patient states symptoms have improved. 19:00 Reassessment: Patient appears in no apparent distress at this time. Patient and/or vc family updated on plan of care and expected duration. Pain level reassessed. 20:00 Reassessment: Patient appears in no apparent distress at this time. Patient and/or vc family updated on plan of care and expected duration. Pain level reassessed. 21:02 Reassessment: Patients brief changed. Reassessment: Patient appears in no apparent vc distress at this time. Patient and/or family updated on plan of care and expected duration. Pain level reassessed. Patient states symptoms have improved. Vital Signs: 14:21 BP 139 / 70; Pulse 70; Resp 15; Temp 98.4; Pulse Ox 96% ; Weight 65.32 kg; Height 5 ft. ah 7 in. (170.18 cm); 15:09 BP 172 / 88; Pulse 89; Resp 15; Pulse Ox 100% on R/A; Pain 10/10; hb 16:00 BP 156 / 84; Pulse 88; Resp 16; Pulse Ox 97% on R/A; hb 16:54 BP 138 / 65; Pulse 73; Resp 17; Pulse Ox 97% on R/A; vc 17:48 BP 144 / 71; Pulse 78; Resp 17; Pulse Ox 97% on R/A; vc 18:20 BP 115 / 96; Pulse 73; Resp 17; Temp 98.1; Pulse Ox 97% on R/A; vc 19:00 BP 140 / 72; Pulse 71; Resp 18; Pulse Ox 96% on R/A; vc 20:00 BP 128 / 64; Pulse 73; Resp 16; Pulse Ox 91% on R/A; vc 21:00 BP 103 / 91; Pulse 80; Resp 16; Pulse Ox 96% on R/A; vc 14:21 Body Mass Index 22.55 (65.32 kg, 170.18 cm) ah [place] Coma Score: 14:20 Eye Response: spontaneous(4). Verbal Response: confused(4). Motor Response: obeys hb commands(6). Total: 14. Trauma Score (Adult): 14:20 Eye Response: spontaneous(1); Verbal Response: confused(1); Motor Response: obeys hb commands(2); Systolic BP: > 89 mm Hg(4); Respiratory Rate: 10 to 29 per min(4); [place] Score: 14; Trauma Score: 12 15:09 Eye Response: spontaneous(1); Verbal Response: confused(1); Motor Response: obeys hb commands(2); Systolic BP: > 89 mm Hg(4); Respiratory Rate: 10 to 29 per min(4); [place] Score: 14; Trauma Score: 12 16:00 Eye Response: spontaneous(1); Verbal Response: confused(1); Motor Response: obeys hb commands(2); Systolic BP: > 89 mm Hg(4); Respiratory Rate: 10 to 29 per min(4); [place] Score: 14; Trauma Score: 12 16:54 Eye Response: spontaneous(1); Verbal Response: confused(1); Motor Response: obeys vc commands(2); Systolic BP: > 89 mm Hg(4); Respiratory Rate: 10 to 29 per min(4); [place] Score: 14; Trauma Score: 12 17:48 Eye Response: spontaneous(1); Verbal Response: confused(1); Motor Response: obeys vc commands(2); Systolic BP: > 89 mm Hg(4); Respiratory Rate: 10 to 29 per min(4); [place] Score: 14; Trauma Score: 12 18:20 Eye Response: spontaneous(1); Verbal Response: confused(1); Motor Response: obeys vc commands(2); Systolic BP: > 89 mm Hg(4); Respiratory Rate: 10 to 29 per min(4); [place] Score: 14; Trauma Score: 12 19:00 Eye Response: spontaneous(1); Verbal Response: confused(1); Motor Response: obeys vc commands(2); Systolic BP: > 89 mm Hg(4); Respiratory Rate: 10 to 29 per min(4); [place] Score: 14; Trauma Score: 12 20:00 Eye Response: spontaneous(1); Verbal Response: confused(1); Motor Response: obeys vc commands(2); Systolic BP: > 89 mm Hg(4); Respiratory Rate: 10 to 29 per min(4); [place] Score: 14; Trauma Score: 12 21:00 Eye Response: spontaneous(1); Verbal Response: confused(1); Motor Response: obeys vc commands(2); Systolic BP: > 89 mm Hg(4); Respiratory Rate: 10 to 29 per min(4); [place] Score: 14; Trauma Score: 12 ED Course: 14:20 Patient arrived in ED. vc 14:20 Patient has correct armband on for positive identification. Bed in low position. Call hb light in reach. Side rails up X2. Adult w/ patient. 14:20 Patient maintains SpO2 saturation greater than 95% on room air. hb 14:22 Thermoregulation: warm blanket given to patient. hb 14:23 Triage completed. ah 14:28 Aaliyah Sosa, RN is Primary Nurse. vc 14:33 Henry Pratt MD is Attending Physician. kdr 15:08 Arm band placed on. hb 15:29 Pelvis XRAY In Process Unspecified. EDMS 15:29 Hip Left 2 View XRAY In Process Unspecified. EDMS 15:30 Femur Left XRAY In Process Unspecified. EDMS 21:26 No provider procedures requiring assistance completed. Patient transferred, IV remains vc in place. Administered Medications: 14:41 Drug: morphine 4 mg Route: IVP; Site: right hand; hb 18:33 Follow up: Response: No adverse reaction vc 14:41 Drug: Zofran (Ondansetron) 4 mg Route: IVP; Site: right hand; hb 18:32 Follow up: Response: No adverse reaction; Pain is decreased vc 20:10 Drug: morphine 4 mg Route: IVP; Site: right hand; vc 21:07 Follow up: Response: No adverse reaction; Pain is decreased vc 20:10 Drug: Zofran (Ondansetron) 4 mg Route: IVP; Site: right hand; vc 21:07 Follow up: Response: No adverse reaction vc 20:31 Drug: Demerol 25 mg Route: IVP; Site: right hand; vc 21:06 Follow up: Response: No adverse reaction; Pain is decreased vc Intake: 14:20 PO: 0ml; Total: 0ml. hb Output: 14:20 Urine: 0ml; Total: 0ml. hb Outcome: 18:52 ER care complete, transfer ordered by . kdr 21:26 Patient left the ED. vc 21:26 Transferred by ground EMS to [facility], Transfer form vc completed. X-rays sent w/ patient. 21:26 Condition: stable 21:26 Instructed on the need for transfer. vc 21:26 Patient's length of stay in the Emergency Department was greater than 2 hours. No ortho vc surgeon available, patient to be transferred to another facility.Patient's length of stay extended due to Signatures: Dispatcher [employer] EDMS Henry Pratt MD MD kdr Bianca Hess RN RN hb Aaliyah Sosa RN RN vc Harris, Amy, RN RN Corrections: (The following items were deleted from the chart) 14:24 14:21 Acuity: JACINTO 3 ah hb 16:45 15:52 GCS: 14, vc hb
--- NOTE | 2019-09-06 18:53 | EDPHYS ---
Physician Documentation [facility] Name: Gwendolyn Guillory Age: 83 yrs Sex: Female : 1935 Arrival Date: 09/06/2019 Time: 14:20 Bed 16 Private MD: ED Physician Henry Pratt HPI: 09/05 18:52 This 83 yrs old Female presents to ER via EMS with complaints of Leg Pain, kdr Fall Injury. 18:52 The patient presents with decreased range of motion, a deformity, an injury, pain, that kdr is acute, spasm, swelling, tenderness. The complaints affect the lateral aspect of left thigh, left hamstring, medial aspect of left thigh and left quadriceps. Context: The patient was apparently in a wheelchair in the bathroom when she fell injuring her left leg. Onset: The symptoms/episode began/occurred suddenly, just prior to arrival. Modifying factors: The symptoms are alleviated by nothing. the symptoms are aggravated by movement, weight bearing, bending knee. Associated signs and symptoms: The patient has no apparent associated signs or symptoms. Severity of symptoms: At their worst the symptoms were moderate, severe, incapacitating, just prior to arrival, in the emergency department the symptoms are unchanged. The patient has not experienced similar symptoms in the past. It is unknown whether or not the patient has recently seen a physician. Historical: - Allergies: 14:24 PENICILLINS; ah - PMHx: 14:24 Alzheimers; Dementia; Depression; ah - Immunization history:: Adult Immunizations up to date. - Social history:: Smoking status: unknown. - Immunization history: Last tetanus immunization: unknown. ROS: 18:52 Constitutional: Negative for fever, chills, and weight loss, Eyes: Negative for injury, kdr pain, redness, and discharge, Neck: Negative for injury, pain, and swelling, Cardiovascular: Negative for chest pain, palpitations, and edema, Respiratory: Negative for shortness of breath, cough, wheezing, and pleuritic chest pain, Abdomen/GI: Negative for abdominal pain, nausea, vomiting, diarrhea, and constipation, Back: Negative for injury and pain, : Negative for injury, bleeding, discharge, and swelling, Skin: Negative for injury, rash, and discoloration, Neuro: Negative for headache, weakness, numbness, tingling, and seizure activity. Psych: Negative for depression, anxiety, suicide ideation, homicidal ideation, and hallucinations - the patinet is very pleasant but demented and confused Allergy/Immunology: Negative for hives, rash, and allergies, Endocrine: Negative for neck swelling, polydipsia, polyuria, polyphagia, and marked weight changes, Hematologic/Lymphatic: Negative for swollen nodes, abnormal bleeding, and unusual bruising. Exam: 18:52 Constitutional: This is a well developed, well nourished patient who is awake, alert, kdr and in no acute distress. Head/Face: Normocephalic, atraumatic. Eyes: Pupils equal round and reactive to light, extra-ocular motions intact. Lids and lashes normal. Conjunctiva and sclera are non-icteric and not injected. Cornea within normal limits. Periorbital areas with no swelling, redness, or edema. Neck: Trachea midline, no thyromegaly or masses palpated, and no cervical lymphadenopathy. Supple, full range of motion without nuchal rigidity, or vertebral point tenderness. No Meningismus. Chest/axilla: Normal chest wall appearance and motion. Nontender with no deformity. No lesions are appreciated. Cardiovascular: Regular rate and rhythm with a normal S1 and S2. No gallops, murmurs, or rubs. Normal PMI, no JVD. No pulse deficits. Respiratory: Lungs have equal breath sounds bilaterally, clear to auscultation and percussion. No rales, rhonchi or wheezes noted. No increased work of breathing, no retractions or nasal flaring. Abdomen/GI: Soft, non-tender, with normal bowel sounds. No distension or tympany. No guarding or rebound. No evidence of tenderness throughout. Back: No spinal tenderness. No costovertebral tenderness. Full range of motion. Skin: Warm, dry with normal turgor. Normal color with no rashes, no lesions, and no evidence of cellulitis. Neuro: Awake and alert, GCS 15, oriented to person, place, time, and situation. Cranial nerves II-XII grossly intact. Motor strength 5/5 in all extremities. Sensory grossly intact. Cerebellar exam normal. Normal gait. Psych: Awake, alert, with orientation to person, place and time. Behavior, mood, and affect are within normal limits. 18:52 Musculoskeletal/extremity: Extremities: grossly normal except: ROM: limited active range of motion due to pain, limited passive range of motion due to pain, Circulation is intact in all extremities. Sensation intact. Weight bearing: is unable to bear weight. Vital Signs: 14:21 BP 139 / 70; Pulse 70; Resp 15; Temp 98.4; Pulse Ox 96% ; Weight 65.32 kg; Height 5 ft. ah 7 in. (170.18 cm); 15:09 BP 172 / 88; Pulse 89; Resp 15; Pulse Ox 100% on R/A; Pain 10/10; hb 16:00 BP 156 / 84; Pulse 88; Resp 16; Pulse Ox 97% on R/A; hb 16:54 BP 138 / 65; Pulse 73; Resp 17; Pulse Ox 97% on R/A; vc 17:48 BP 144 / 71; Pulse 78; Resp 17; Pulse Ox 97% on R/A; vc 18:20 BP 115 / 96; Pulse 73; Resp 17; Temp 98.1; Pulse Ox 97% on R/A; vc 19:00 BP 140 / 72; Pulse 71; Resp 18; Pulse Ox 96% on R/A; vc 20:00 BP 128 / 64; Pulse 73; Resp 16; Pulse Ox 91% on R/A; vc 21:00 BP 103 / 91; Pulse 80; Resp 16; Pulse Ox 96% on R/A; vc 14:21 Body Mass Index 22.55 (65.32 kg, 170.18 cm) [place] Coma Score: 14:20 Eye Response: spontaneous(4). Verbal Response: confused(4). Motor Response: obeys hb commands(6). Total: 14. Trauma Score (Adult): 14:20 Eye Response: spontaneous(1); Verbal Response: confused(1); Motor Response: obeys hb commands(2); Systolic BP: > 89 mm Hg(4); Respiratory Rate: 10 to 29 per min(4); [place] Score: 14; Trauma Score: 12 15:09 Eye Response: spontaneous(1); Verbal Response: confused(1); Motor Response: obeys hb commands(2); Systolic BP: > 89 mm Hg(4); Respiratory Rate: 10 to 29 per min(4); [place] Score: 14; Trauma Score: 12 16:00 Eye Response: spontaneous(1); Verbal Response: confused(1); Motor Response: obeys hb commands(2); Systolic BP: > 89 mm Hg(4); Respiratory Rate: 10 to 29 per min(4); [place] Score: 14; Trauma Score: 12 16:54 Eye Response: spontaneous(1); Verbal Response: confused(1); Motor Response: obeys vc commands(2); Systolic BP: > 89 mm Hg(4); Respiratory Rate: 10 to 29 per min(4); [place] Score: 14; Trauma Score: 12 17:48 Eye Response: spontaneous(1); Verbal Response: confused(1); Motor Response: obeys vc commands(2); Systolic BP: > 89 mm Hg(4); Respiratory Rate: 10 to 29 per min(4); [place] Score: 14; Trauma Score: 12 18:20 Eye Response: spontaneous(1); Verbal Response: confused(1); Motor Response: obeys vc commands(2); Systolic BP: > 89 mm Hg(4); Respiratory Rate: 10 to 29 per min(4); [place] Score: 14; Trauma Score: 12 19:00 Eye Response: spontaneous(1); Verbal Response: confused(1); Motor Response: obeys vc commands(2); Systolic BP: > 89 mm Hg(4); Respiratory Rate: 10 to 29 per min(4); [place] Score: 14; Trauma Score: 12 20:00 Eye Response: spontaneous(1); Verbal Response: confused(1); Motor Response: obeys vc commands(2); Systolic BP: > 89 mm Hg(4); Respiratory Rate: 10 to 29 per min(4); [place] Score: 14; Trauma Score: 12 21:00 Eye Response: spontaneous(1); Verbal Response: confused(1); Motor Response: obeys vc commands(2); Systolic BP: > 89 mm Hg(4); Respiratory Rate: 10 to 29 per min(4); [place] Score: 14; Trauma Score: 12 MDM: 18:52 Patient medically screened. kdr 18:56 Data reviewed: vital signs, nurses notes, radiologic studies. Counseling: I had a kdr detailed discussion with the patient and/or guardian regarding: the historical points, exam findings, and any diagnostic results supporting the discharge/admit diagnosis, lab results, radiology results, the need to transfer to another facility. ED course: Spoke with Dr. Irving - he was unavailable but facilitated transfer to [facility]. Spoke to Dr. Costa: given prior roding of femur will require services not available here.. 09/05 17:39 Order name: CBC with Diff [facility] 09/05 17:39 Order name: Chem 7 [facility] 09/05 14:34 Order name: Pelvis XRAY; Complete Time: 17:39 kdr 09/05 14:34 Order name: Hip Left 2 View XRAY [facility] 09/05 15:22 Order name: Femur Left XRAY 09/05 17:39 Order name: PT-INR [facility] 09/05 17:39 Order name: EKG - Nurse/Tech; Complete Time: 18:23 kdr Administered Medications: 14:41 Drug: morphine 4 mg Route: IVP; Site: right hand; hb 18:33 Follow up: Response: No adverse reaction vc 14:41 Drug: Zofran (Ondansetron) 4 mg Route: IVP; Site: right hand; hb 18:32 Follow up: Response: No adverse reaction; Pain is decreased vc 20:10 Drug: morphine 4 mg Route: IVP; Site: right hand; vc 21:07 Follow up: Response: No adverse reaction; Pain is decreased vc 20:10 Drug: Zofran (Ondansetron) 4 mg Route: IVP; Site: right hand; vc 21:07 Follow up: Response: No adverse reaction vc 20:31 Drug: Demerol 25 mg Route: IVP; Site: right hand; vc 21:06 Follow up: Response: No adverse reaction; Pain is decreased vc Disposition: 09/06/19 18:52 Transfer ordered to [facility]. Diagnosis is Distal left femur fracture. - Reason for transfer: Higher level of care. - Accepting physician is Dr. Leal. - Condition is Fair. - Problem is new. - Symptoms have improved. Signatures: Dispatcher [employer] EDMS Henry Pratt MD MD [facility] Bianca Hess RN RN hb Calcote, Vanessa, RN RN vc Harris, Amy, RN RN Corrections: (The following items were deleted from the chart) 21:26 18:52 09/06/2019 18:52 Transfer ordered to [facility]. Diagnosis is Distal left femur vc fracture. Reason for transfer: Higher level of care. Accepting physician is Dr. Leal. Condition is Fair. Problem is new. Symptoms have improved. kdr
[2019-09-06] MEDS ORDERED: MEPERIDINE HCL 50 MG/ML ONE (20:30)
[2019-09-06 21:39] VITALS: TEMP 98.1
[2019-09-06 21:43] VITALS: BP 103/91; O2SAT 96
--- NOTE | 2019-09-07 09:26 | RAD REPORT ---
EXAM DESCRIPTION: RAD - Hip Left 2 View - 09/06/2019 3:29 pm CLINICAL HISTORY: Left hip pain COMPARISON: None FINDINGS: AP pelvis, left hip and left femur - multiple projections Right total hip arthroplasty is noted. Proximal femoral nail is present on the left. Mildly displaced oblique fracture of the distal left femur is seen.
--- NOTE | 2019-09-07 09:26 | RAD REPORT ---
EXAM DESCRIPTION: RAD - Femur Left - 09/06/2019 3:30 pm CLINICAL HISTORY: Left hip pain COMPARISON: None FINDINGS: AP pelvis, left hip and left femur - multiple projections Right total hip arthroplasty is noted. Proximal femoral nail is present on the left. Mildly displaced oblique fracture of the distal left femur is seen.
== END 2019-09-06 21:26 | disposition short-term general hospital (02) ==
LOC: ER 14:13
DX: S72.402A Unspecified fracture of lower end of left femur, initial encounter for closed fracture (principal); W19.XXXA Unspecified fall, initial encounter; Y93.89 Activity, other specified; Y92.89 Other specified places as the place of occurrence of the external cause; G30.9 Alzheimer's disease, unspecified; F02.80 Dementia in other diseases classified elsewhere, unspecified severity, without behavioral disturbance, psychotic disturbance, mood disturbance, and anxiety; Z88.0 Allergy status to penicillin
CPT/HCPCS: 93005; 85025; 80048; 36415; 85610; 72170; 73502; 73552; 96375; 96374; 99285; J2175; J2405 ×2

== ENCOUNTER 2020-03-27 16:38 | Emergency (ER) | payer BC ==
--- OUTSIDE RECORDS SUMMARY | 2020-03-27 16:39 | XMS REPORT | Continuity of Care Document ---
:1935 Author Organization [facility] t Address [address] [place] [address] Care Team Providers Name Role Phone Ho Donaldson MD Attending Clinician Problems This patient has no known problems. Allergies, Adverse Reactions, Alerts This patient has no known allergies or adverse reactions. Medications This patient has no known medications. Procedures This patient has no known procedures. Encounters Start End Encounter Admission Attending Care Care Encounter Source Date/Time Date/Time Type Type Clinicians Facility Department ID 2019-11-15 2019-11-23 Office KARTHIKEYAN Donaldson [id number] 11:24:40 07:35:58 Visit Ho [facility] [id number] [id number] [id number] 2019-11-07 2019-11-07 Telephone KARTHIKEYAN Donaldson [id number] 00:00:00 00:00:00 Ho [facility] [id number] [facility] [id number] [place] [id number] Results This patient has no known results.
--- NOTE | 2020-03-27 17:14 | RAD REPORT ---
EXAM DESCRIPTION: CT - CTHCSPWOC - 03/27/2020 4:56 pm CLINICAL HISTORY: PAIN, fall, head and neck injury, headache, neck pain COMPARISON: No comparisons TECHNIQUE: Axial 5 mm thick images of the head were obtained. Axial 2 mm thick images of the cervic al spine were obtained with sagittal and coronal reconstruction images generated and reviewed. All CT scans are performed using dose optimization technique as appropriate and may include automated exposure control or mA/KV adjustment according to patient size. FINDINGS: No intracranial hemorrhage, mass, edema or acute intracranial finding. No suspicion for ac simon infarction. No cortical edema or sulcal effacement. Mild to moderate atrophy changes are present. Ventricles are in proportion to volume loss. Arterial and physiologic calcifications are present. Ma stoid air cells and paranasal sinuses are clear. No globe or orbit abnormality seen. Cervical bodies are normal in height. Acute fracture change. No pathologic bone process identified. A nterior subluxation of 3 mm noted C3 on C4. Facet joint degenerative changes at this level would acco unt for the subluxation. There is significant disc space narrowing and endplate spurring at this leve l. Advanced disc space narrowing and bony hypertrophy of the endplates at C4-5, C5-6 and C6-7. Signif icant facet joint degenerative changes are present. There is right bony foraminal encroachment at C3- 4. Moderate bilateral foraminal stenosis at C4-5 with mild C5-6 and C6-7 bony foraminal stenosis. Can al is stenotic to 9 mm at C4-5. Central canal detail is inherently limited. No paraspinal mass or hematoma. Significant bilateral TM joint degenerative change. IMPRESSION: Patient has atrophy and chronic ischemic change but no hemorrhage or acute intracranial finding. Advanced cervical spine degenerative changes are present as detailed. No acute findings.
--- NOTE | 2020-03-27 17:24 | EDPHYS ---
Physician Documentation [facility] Name: Gwendolyn Guillory Age: 84 yrs Sex: Female : 1935 Arrival Date: 03/27/2020 Time: 16:39 Bed 17 Private MD: ED Physician Mehrdad Garza HPI: 03/27 17:39 This 84 yrs old Female presents to ER via EMS with complaints of Fall Injury. kb 17:39 Details of fall: The patient fell from a height. Onset: The symptoms/episode kb began/occurred just prior to arrival. Associated injuries: The patient sustained injury to the head, hematoma. Severity of symptoms: At their worst the symptoms were mild, in the emergency department the symptoms are unchanged. The patient has not experienced similar symptoms in the past. The patient has not recently seen a physician. alf staff reports pt fell from standing position. Pt has no complaints, no loc, but did hit her head so they sent her in for evaluation. Pt is awake and alert. normal for her mentation. Historical: - Allergies: 16:42 PENICILLINS; ca1 - PMHx: 16:42 Alzheimers; Dementia; Depression; ca1 - Immunization history:: Adult Immunizations unknown. - Social history:: Smoking status: unknown. ROS: 17:37 Constitutional: Negative for fever, chills, and weight loss, Eyes: Negative for injury, kb pain, redness, and discharge, Cardiovascular: Negative for chest pain, palpitations, and edema, Respiratory: Negative for shortness of breath, cough, wheezing, and pleuritic chest pain, Abdomen/GI: Negative for abdominal pain, nausea, vomiting, diarrhea, and constipation, MS/Extremity: Negative for injury and deformity, Neuro: Negative for headache, weakness, numbness, tingling, and seizure. 17:37 Skin: Positive for hematoma, of the right side of forehead. Exam: 17:37 Constitutional: This is a well developed, well nourished patient who is awake, alert, kb and in no acute distress. Chest/axilla: Normal chest wall appearance and motion. Nontender with no deformity. No lesions are appreciated. Cardiovascular: Regular rate and rhythm with a normal S1 and S2. No gallops, murmurs, or rubs. Normal PMI, no JVD. No pulse deficits. Respiratory: Lungs have equal breath sounds bilaterally, clear to auscultation and percussion. No rales, rhonchi or wheezes noted. No increased work of breathing, no retractions or nasal flaring. Abdomen/GI: Soft, non-tender, with normal bowel sounds. No distension or tympany. No guarding or rebound. No evidence of tenderness throughout. MS/ Extremity: Pulses equal, no cyanosis. Neurovascular intact. Full, normal range of motion. 17:37 Head/face: Noted is no obvious of injury or deformity except hematoma, that is mild, of the right side of forehead. 17:37 Neuro: Exam negative for acute changes. Vital Signs: 16:42 BP 117 / 78; Pulse 94; Resp 18 S; Pulse Ox 98% on R/A; ca1 17:01 BP 111 / 75; Pulse 59; Resp 16; Pulse Ox 98% ; bp 17:47 BP 125 / 69; Pulse 62; Resp 17; Temp 98; Pulse Ox 97% ; bp MDM: 16:41 Patient medically screened. kb 17:39 Data reviewed: vital signs, nurses notes. Data interpreted: Pulse oximetry: on room air kb is 98 %. Interpretation: normal. Counseling: I had a detailed discussion with the patient and/or guardian regarding: the historical points, exam findings, and any diagnostic results supporting the discharge/admit diagnosis, radiology results, the need for outpatient follow up, a family practitioner, to return to the emergency department if symptoms worsen or persist or if there are any questions or concerns that arise at home. 03/27 16:41 Order name: CT Head C Spine; Complete Time: 17:17 kb Administered Medications: No medications were administered Disposition: 03/28 07:03 Co-signature as Attending Physician, Mehrdad Garza MD I agree with the assessment and marj plan of care. Disposition: 03/27/20 17:24 Discharged to Home. Impression: Superficial injury of head, Fall on same level from slipping, tripping and stumbling. - Condition is Stable. - Discharge Instructions: Hematoma, [id number], Fall Prevention in the Home, [id number], Head Injury, Adult, [id number]. - Medication Reconciliation Form, Thank You Letter, Antibiotic Education, Prescription Opioid Use form. - Follow up: Emergency Department; When: As needed; Reason: Worsening of condition. Follow up: Private Physician; When: 2 - 3 days; Reason: Recheck today's complaints, Continuance of care, Re-evaluation by your physician. Signatures: Dispatcher [employer] Naomy Allen, ANABEL CALDERA-Mehrdad Hernandez MD MD cha Peltier, Brian, RN RN bp Laura Aquino RN RN ca1 Corrections: (The following items were deleted from the chart) 03/27 17:57 17:24 03/27/2020 17:24 Discharged to Home. Impression: Superficial injury of head; Fall bp on same level from slipping, tripping and stumbling. Condition is Stable. Forms are Medication Reconciliation Form, Thank You Letter, Antibiotic Education, Prescription Opioid Use. Follow up: Emergency Department; When: As needed; Reason: Worsening of condition. Follow up: Private Physician; When: 2 - 3 days; Reason: Recheck today's complaints, Continuance of care, Re-evaluation by your physician. kb
--- NOTE | 2020-03-27 17:24 | ER ---
Nurse's Notes [facility] Name: Gwendolyn Guillory Age: 84 yrs Sex: Female : 1935 Arrival Date: 03/27/2020 Time: 16:39 Bed 17 Private MD: Diagnosis: Superficial injury of head;Fall on same level from slipping, tripping and stumbling Presentation: 03/27 16:39 Chief complaint: EMS states: Unwitnessed fall 20 mins [employer]. Denies LOC. Pt not on blood ca1 thinners. Hit head on R side. Unable to recall events of the fall. [facility] reports this is her normal mentation. No complaints at this time. PT alert and awake. Coronavirus screen: Client denies travel out of the [place] in the last 14 days. At this time, the client does not indicate any symptoms associated with coronavirus-19. Ebola Screen: Patient negative for fever greater than or equal to 101.5 degrees Fahrenheit, and additional compatible Ebola Virus Disease symptoms Patient denies exposure to infectious person. Patient denies travel to an Ebola-affected area in the 21 days before illness onset. No symptoms or risks identified at this time. Initial Sepsis Screen: Does the patient meet any 2 criteria? No. Patient's initial sepsis screen is negative. Does the patient have a suspected source of infection? No. Patient's initial sepsis screen is negative. Risk Assessment: Do you want to hurt yourself or someone else? Patient reports no desire to harm self or others. Onset of symptoms was March 27, 2020. 16:39 Method Of Arrival: EMS: [facility] ca1 16:39 Acuity: JACINTO 4 ca1 Triage Assessment: 16:40 General: Appears in no apparent distress. comfortable, Behavior is cooperative, bp CONFUSED. Pain: Unable to use pain scale. Does not appear to understand pain scale. EENT: No deficits noted. Neuro: Level of Consciousness is awake, confused, Oriented to person. Cardiovascular: No deficits noted. Respiratory: No deficits noted. GI: No signs and/or symptoms were reported involving the gastrointestinal system. : No signs and/or symptoms were reported regarding the genitourinary system. Derm: No deficits noted. Musculoskeletal: No deficits noted. Historical: - Allergies: 16:42 PENICILLINS; ca1 - PMHx: 16:42 Alzheimers; Dementia; Depression; ca1 - Immunization history:: Adult Immunizations unknown. - Social history:: Smoking status: unknown. Screenin:40 Abuse screen: Denies threats or abuse. Denies injuries from another. Nutritional bp screening: No deficits noted. Tuberculosis screening: No symptoms or risk factors identified. Fall Risk None identified. Assessment: 16:40 General: SEE TRIAGE NOTE. bp 17:01 Reassessment: Patient appears in no apparent distress at this time. No changes from bp previously documented assessment. Patient and/or family updated on plan of care and expected duration. Pain level reassessed. Patient is alert, oriented x 3, equal unlabored respirations, skin warm/dry/pink. PT RETURNED FROM CT. 17:30 Reassessment: PT TBDC, AWAITING TRANSPORT ARRANGEMENT. bp 17:47 Reassessment: PT D/C HOME VIA W/C WITH FAMILY, DX WITH SUPERFICIAL HEAD INJURY. bp Vital Signs: 16:42 BP 117 / 78; Pulse 94; Resp 18 S; Pulse Ox 98% on R/A; ca1 17:01 BP 111 / 75; Pulse 59; Resp 16; Pulse Ox 98% ; bp 17:47 BP 125 / 69; Pulse 62; Resp 17; Temp 98; Pulse Ox 97% ; bp ED Course: 16:39 Patient arrived in ED. ca1 16:40 Patient has correct armband on for positive identification. Bed in low position. Call bp light in reach. Side rails up X2. 16:41 Naomy Bradshaw FNP-C is [facility]. kb 16:41 Mehrdad Garza MD is Attending Physician. kb 16:41 Triage completed. ca1 16:42 Arm band placed on right wrist. ca1 16:46 Zacarias Ayers, TIFFANI is Primary Nurse. bp 16:56 CT Head C Spine In Process Unspecified. EDMS 17:48 No provider procedures requiring assistance completed. Patient did not have IV access bp during this emergency room visit. Administered Medications: No medications were administered Outcome: 17:24 Discharge ordered by . kb 17:48 Discharged to home via wheelchair, with family. bp 17:48 Condition: stable 17:48 Discharge instructions given to patient, family, Instructed on discharge instructions, follow up and referral plans. Demonstrated understanding of instructions, follow-up care. 17:57 Patient left the ED. bp Signatures: Dispatcher [employer] EDMS Naomy Bradshaw FNP-C [employer] Zacarias Ayers, RN RN bp Laura Aquino RN RN ca1 Corrections: (The following items were deleted from the chart) 16:43 16:39 Chief complaint: EMS states: Unwitnessed fall 20 mins [employer]. Denies LOC. Hit head ca1 on R side. Unable to recall events of the fall. [facility] reports this is her normal mentation. No complaints at this time. PT alert and awake ca1
[2020-03-27 18:11] VITALS: BP 125/69; TEMP 98; O2SAT 97
== END 2020-03-27 17:57 | disposition home or self-care (01) ==
LOC: ER 16:38
DX: S00.83XA Contusion of other part of head, initial encounter (principal); W01.0XXA Fall on same level from slipping, tripping and stumbling without subsequent striking against object, initial encounter; Y93.9 Activity, unspecified; Y92.129 Unspecified place in nursing home as the place of occurrence of the external cause; Z88.0 Allergy status to penicillin; G30.9 Alzheimer's disease, unspecified; F02.80 Dementia in other diseases classified elsewhere, unspecified severity, without behavioral disturbance, psychotic disturbance, mood disturbance, and anxiety
CPT/HCPCS: 70450; 72125; 99283

== ENCOUNTER 2020-06-19 05:47 | Observation (INO) | payer BC ==
--- OUTSIDE RECORDS SUMMARY | 2020-06-19 05:49 | XMS REPORT | Continuity of Care Document ---
:1935 Author Organization [facility] t Address [address] [place] [address] Care Team Providers Name Role Phone Anika WALLER Attending Clinician Problems This patient has no known problems. Allergies, Adverse Reactions, Alerts This patient has no known allergies or adverse reactions. Medications This patient has no known medications. Procedures This patient has no known procedures. Encounters Start End Encounter Admission Attending Care Care Encounter Source Date/Time Date/Time Type Type Clinicians Facility Department ID 2019-11-15 2019-11-23 Office KARTHIKEYAN Donaldson [id number] 11:24:40 07:35:[address] [facility] [id number] [facility] [id number] [place] [id number] 2019-11-07 2019-11-07 Telephone KARTHIKEYAN Donaldson [id number] 00:00:00 00:00:00 [facility] [id number] [facility] [id number] [place] [id number] Results This patient has no known results.
[2020-06-19] MEDS ORDERED: ONDANSETRON 4 MG/2 ML VIAL ONE ×2 (06:22→09:12)
[2020-06-19] MEDS ORDERED: MORPHINE 2 MG/ML SYR ONE (06:22)
--- NOTE | 2020-06-19 08:19 | RAD REPORT ---
EXAM DESCRIPTION: RAD - Wrist Right 3 View - 06/19/2020 6:47 am CLINICAL HISTORY: Right wrist pain status post injury FINDINGS: Comminuted impacted markedly displaced fractures involve the distal radius and ulna. Angul ation is present at the fracture sites. No dislocation
[2020-06-19] MEDS: Ringers Lactate 1,000 ML IV ONE ×2 (09:00→09:36)
--- NOTE | 2020-06-19 09:04 | ER ---
Nurse's Notes [facility] Name: Gwendolyn Guillory Age: 84 yrs Sex: Female : 1935 Arrival Date: 06/19/2020 Time: 05:52 Bed 23 Private MD: Diagnosis: Other slipping, tripping and stumbling and falls;Open right distal radius ulna comminuted fracture Presentation: 06/19 05:52 Chief complaint: EMS states: Toned out to [facility], pt reported she was going to ea the restroom when the door caught her and she lost her footing, pt reports pain in right wrist. EMS reports body deformity to area, right arm splinted per EMS. Care prior to arrival: splint to right wrist. Mechanism of Injury: Fall from standing position. Trauma event details: Injury occurred in the [facility], Injury occurred: at home. Injury occurred: June 19, 2020. 05:52 Acuity: JACINTO 3 ea 05:52 Method Of Arrival: EMS: [facility] ea 05:56 Coronavirus screen: At this time, the client does not indicate any symptoms associated ea with coronavirus-19. Ebola Screen: No symptoms or risks identified at this time. Initial Sepsis Screen: Does the patient meet any 2 criteria? No. Patient's initial sepsis screen is negative. Does the patient have a suspected source of infection? No. Patient's initial sepsis screen is negative. Risk Assessment: Do you want to hurt yourself or someone else? Patient reports no desire to harm self or others. Onset of symptoms was June 19, 2020. Historical: - Allergies: 05:59 PENICILLINS; ea - Home Meds: 05:59 Acetaminophen Oral [Active]; Advair Diskus Inhl [Active]; Clonazepam Oral [Active]; ea Trazodone Oral [Active]; - PMHx: 05:59 Depression; Dementia; Alzheimers; ea - Immunization history: Last tetanus immunization: - up to date. - Social history:: Smoking status: Patient denies any tobacco usage or history of. Screenin:54 Abuse screen: Denies threats or abuse. Nutritional screening: No deficits noted. ea Tuberculosis screening: No symptoms or risk factors identified. Fall Risk Fall in past 12 months (25 points). Primary Survey: 05:57 NO uncontrolled hemorrhage observed. A: The patient is alert. Airway: patent. ea Breathing/Chest: Respiratory pattern: regular, Respiratory effort: spontaneous, unlabored. Circulation: Skin color: pink. Disability Alert. Exposure/Environment: Obvious injury(ies) are noted at this time: right wrist injury. 07:02 Reassessment Airway Airway Patent Breathing/Chest Respiratory pattern Regular ea Respiratory effort Spontaneous Unlabored Disability Alert. Secondary Survey: 05:59 Musculoskeletal: right wrist. ea Assessment: 06:00 General: Appears in no apparent distress. Behavior is calm, cooperative, appropriate ea for age. Pain: Complains of pain in right arm. Neuro: Level of Consciousness is awake, alert, obeys commands, Oriented to person, place, time. Cardiovascular: Patient's skin is warm and dry. Respiratory: Airway is patent Respiratory effort is even, unlabored, Respiratory pattern is regular, symmetrical. Derm: Skin is pink, warm \T\ dry. skin tears to right arm, body deformity to right wrist. 07:05 General: Appears in no apparent distress. Behavior is calm, cooperative. Pain: rb3 Complains of pain in right arm Pain currently is 7 out of 10 on a pain scale. Pain began 0530 this morning. Neuro: Level of Consciousness is awake, alert, obeys commands, Oriented to person, place, time. Cardiovascular: Capillary refill < 3 seconds in right fingers Patient's skin is warm and dry. Pulses are palpable in right radial artery. GI: No signs and/or symptoms were reported involving the gastrointestinal system. : No signs and/or symptoms were reported regarding the genitourinary system. 07:44 Reassessment: Patient appears in no apparent distress at this time. Applied an arm rb3 board and chelo wrap to the right forearm. Pt. tolerated well. 08:14 Reassessment: Patient appears in no apparent distress at this time. Patient and/or rb3 family updated on plan of care and expected duration. Pain level reassessed. Patient is alert, oriented x 3, equal unlabored respirations, skin warm/dry/pink. Pt. leaving for OR. Vital Signs: 05:55 BP 124 / 70; Pulse 92; Resp 18; Temp 98.5; Pulse Ox 99% ; Weight 68.04 kg; Height 5 ft. ea 7 in. (170.18 cm); 07:00 BP 148 / 68; Pulse 68; Resp 17; Pulse Ox 99% ; rb3 08:00 BP 117 / 69; Pulse 67; Resp 17; Pulse Ox 98% ; rb3 05:55 Body Mass Index 23.49 (68.04 kg, 170.18 cm) ea Stuart Coma Score: 05:55 Eye Response: spontaneous(4). Verbal Response: oriented(5). Motor Response: obeys ea commands(6). Total: 15. Trauma Score (Adult): 05:55 Eye Response: spontaneous(1); Verbal Response: oriented(1); Motor Response: obeys ea commands(2); Systolic BP: > 89 mm Hg(4); Respiratory Rate: 10 to 29 per min(4); [place] Score: 15; Trauma Score: 12 ED Course: 05:52 Patient arrived in ED. ea 05:54 Triage completed. ea 05:56 Arm band placed on right wrist. Patient placed in an exam room, on a stretcher, on ea pulse oximetry. 05:56 Patient maintains SpO2 saturation greater than 95% on room air. Thermoregulation: warm ea blanket given to patient. 05:57 Patient has correct armband on for positive identification. Bed in low position. Call ea light in reach. Side rails up X2. Pulse ox on. NIBP on. 06:11 Inserted saline lock: 22 gauge in left wrist, using aseptic technique. ds4 06:25 Henry Pratt MD is Attending Physician. kdr 06:40 CT Head C Spine In Process Unspecified. EDMS 06:46 XRAY Wrist RIGHT 3 view In Process Unspecified. EDMS 07:42 Gena Latif, RN is Primary Nurse. rb3 08:14 No provider procedures requiring assistance completed. Patient admitted, IV remains in rb3 place. 09:02 Blank Robbins MD is Hospitalizing Provider. kdr 12:17 Wrist Right 2 View In Process Unspecified. EDMS Administered Medications: 06:03 CANCELLED (Other Intervention Used): Zofran (Ondansetron) 2 mg IVP once; over 2 minutes ea 06:14 Drug: Zofran (Ondansetron) 4 mg Route: IVP; Site: left forearm; ea 07:02 Follow up: Response: No adverse reaction ea 06:15 Drug: morphine 2 mg Route: IVP; Site: left forearm; ea 07:02 Follow up: Response: No adverse reaction; Pain is decreased ea 08:44 Not Given (Will be given in the OR): Ancef (cefazolin) 1 grams IVPB once rb3 08:44 Not Given (PT. went to OR): Tetanus-Diphtheria Toxoid Adult 0.5 ml IM once rb3 Outcome: 08:14 Admitted to OR accompanied by nurse, family with patient, via stretcher, with chart. rb3 08:14 Condition: stable 08:14 Instructed on the need for admit. 08:25 Patient left the ED. rb3 09:04 Decision to Hospitalize by Provider. kdr Signatures: Dispatcher [employer] EDMS Henry Pratt MD MD kdr Mundo Norton ds4 Tg Ospina RN RN ea Barber, Rebecca, RN RN rb3 Corrections: (The following items were deleted from the chart) 16:41 09:25 Patient left the ED. rb3 rb3
--- NOTE | 2020-06-19 09:04 | EDPHYS ---
Physician Documentation [facility] Name: Gwendolyn Guillory Age: 84 yrs Sex: Female : 1935 Arrival Date: 06/19/2020 Time: 05:52 Bed 23 Private MD: ED Physician Henry Pratt HPI: 06/19 09:04 This 84 yrs old Female presents to ER via EMS with complaints of Fall Injury. kdr 09:04 Details of fall: The patient fell from an upright position, while walking. Onset: The kdr symptoms/episode began/occurred suddenly, just prior to arrival. Associated injuries: The patient sustained dorsal aspect of right forearm, right wrist and palmar aspect of right forearm, decreased range of motion, deformity, obvious fracture, painful injury, swelling. Severity of symptoms: At their worst the symptoms were moderate, in the emergency department the symptoms are unchanged. The patient has not experienced similar symptoms in the past. The patient has not recently seen a physician. The patient somehow was impacted by a door when she was up to the bathroom causing her to fall. She has dementia and is unable to give any clear history or recollection of the events. Historical: - Allergies: 05:59 PENICILLINS; ea - Home Meds: 05:59 Acetaminophen Oral [Active]; Advair Diskus Inhl [Active]; Clonazepam Oral [Active]; ea Trazodone Oral [Active]; - PMHx: 05:59 Depression; Dementia; Alzheimers; ea - Immunization history: Last tetanus immunization: - up to date. - Social history:: Smoking status: Patient denies any tobacco usage or history of. 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 Exam: 09:04 Constitutional: This is a well developed, well nourished patient who is awake, alert, kdr and in no acute distress. Head/Face: Normocephalic, atraumatic. Eyes: Pupils equal round and reactive to light, extra-ocular motions intact. Lids and lashes normal. Conjunctiva and sclera are non-icteric and not injected. Cornea within normal limits. Periorbital areas with no swelling, redness, or edema. Neck: Trachea midline, no thyromegaly or masses palpated, and no cervical lymphadenopathy. Supple, full range of motion without nuchal rigidity, or vertebral point tenderness. No Meningismus. Chest/axilla: Normal chest wall appearance and motion. Nontender with no deformity. No lesions are appreciated. Cardiovascular: Regular rate and rhythm with a normal S1 and S2. No gallops, murmurs, or rubs. Normal PMI, no JVD. No pulse deficits. Respiratory: Lungs have equal breath sounds bilaterally, clear to auscultation and percussion. No rales, rhonchi or wheezes noted. No increased work of breathing, no retractions or nasal flaring. Abdomen/GI: Soft, non-tender, with normal bowel sounds. No distension or tympany. No guarding or rebound. No evidence of tenderness throughout. Back: No spinal tenderness. No costovertebral tenderness. Full range of motion. Skin: Warm, dry with normal turgor. Normal color with no rashes, no lesions, and no evidence of cellulitis. Neuro: Awake and alert, GCS 15, oriented to person, place, time, and situation. Cranial nerves II-XII grossly intact. Motor strength 5/5 in all extremities. Sensory grossly intact. Cerebellar exam normal. Normal gait. Psych: Awake, alert, with orientation to person, place and time. Behavior, mood, and affect are within normal limits. 09:04 Musculoskeletal/extremity: Extremities: grossly normal except: noted in the dorsal aspect of right forearm, right wrist and palmar aspect of right forearm: decreased ROM, deformity, laceration, pain, swelling, tenderness. Vital Signs: 05:55 BP 124 / 70; Pulse 92; Resp 18; Temp 98.5; Pulse Ox 99% ; Weight 68.04 kg; Height 5 ft. ea 7 in. (170.18 cm); 07:00 BP 148 / 68; Pulse 68; Resp 17; Pulse Ox 99% ; rb3 08:00 BP 117 / 69; Pulse 67; Resp 17; Pulse Ox 98% ; rb3 05:55 Body Mass Index 23.49 (68.04 kg, 170.18 cm) ea Stuart Coma Score: 05:55 Eye Response: spontaneous(4). Verbal Response: oriented(5). Motor Response: obeys ea commands(6). Total: 15. Trauma Score (Adult): 05:55 Eye Response: spontaneous(1); Verbal Response: oriented(1); Motor Response: obeys ea commands(2); Systolic BP: > 89 mm Hg(4); Respiratory Rate: 10 to 29 per min(4); Cross Anchor Score: 15; Trauma Score: 12 MDM: 09:04 Patient medically screened. kdr 09:04 Data reviewed: vital signs, nurses notes, lab test result(s), radiologic studies. kdr Counseling: I had a detailed discussion with the patient and/or guardian regarding: the historical points, exam findings, and any diagnostic results supporting the discharge/admit diagnosis, the presence of at least one elevated blood pressure reading (>120/80) during this emergency department visit, radiology results, the need for further work-up and treatment in the hospital. 06/19 09:24 Order name: SARS-COV-2 RT PCR [facility] 06/19 06:00 Order name: XRAY Wrist RIGHT 3 view 06/19 06:03 Order name: CT Head C Spine 06/19 09:08 Order name: Wrist Right 2 View [facility] 06/19 06:52 Order name: Misc. Order: clean and dress wounds on forearm; Complete Time: 07:01 kdr Administered Medications: 06:03 CANCELLED (Other Intervention Used): Zofran (Ondansetron) 2 mg IVP once; over 2 minutes ea 06:14 Drug: Zofran (Ondansetron) 4 mg Route: IVP; Site: left forearm; ea 07:02 Follow up: Response: No adverse reaction ea 06:15 Drug: morphine 2 mg Route: IVP; Site: left forearm; ea 07:02 Follow up: Response: No adverse reaction; Pain is decreased ea 08:44 Not Given (Will be given in the OR): Ancef (cefazolin) 1 grams IVPB once rb3 08:44 Not Given (PT. went to OR): Tetanus-Diphtheria Toxoid Adult 0.5 ml IM once rb3 Disposition: 06/19/20 09:04 Hospitalization ordered by Blank Robbins for Observation. Preliminary diagnosis are Other slipping, tripping and stumbling and falls, Open right distal radius ulna comminuted fracture. - Bed requested for Telemetry/MedSurg (observation). - Status is Observation. rb3 - Condition is Fair. - Problem is new. - Symptoms have improved. Signatures: Dispatcher [employer] EDMS Henry Pratt MD MD kdr Tg Ospina RN Gena Buitrago ea, RN RN rb3 Corrections: (The following items were deleted from the chart) 06:03 06:02 Zofran (Ondansetron) 2 mg IVP once; over 2 minutes ordered. oponam levin 06:03 06:03 Zofran (Ondansetron) 2 mg IVP once; over 2 minutes ordered. poonam levin 08:45 06:52 Splint - Sugar Tong - Forearm ordered. kdr rb3 09:25 09:04 Hospitalization Ordered by Blank Robbins MD for Observation. Preliminary rb3 diagnosis is Other slipping, tripping and stumbling and falls; Open right distal radius ulna comminuted fracture. Bed requested for Telemetry/MedSurg (observation). Status is Observation. Condition is Fair. Problem is new. Symptoms have improved. kdr
[2020-06-19] MEDS ORDERED: propofoL 200 MG/20 ML VIAL IV ONE ×3 (09:11→11:20)
[2020-06-19] MEDS ORDERED: LIDOCAINE 2% MPF 5 ML VIAL ONE (09:11)
[2020-06-19] MEDS ORDERED: FENTANYL CITR 100 MCG/2 ML ONE (09:11)
[2020-06-19] MEDS ORDERED: dexAMETHasone 4 MG/ML VIAL ONE (09:12)
[2020-06-19] MEDS ORDERED: CLINDAMYCIN INJ 600 MG in NA CHLORIDE 0.9% 50 ML IV ONE (09:30)
--- NOTE | 2020-06-19 11:25 | CON ---
Date of Consultation: 06/19/2020 Reason For Consultation: Right wrist injury. History Of Present Illness: Gwendolyn is an 84-year-old female with history of Alzheimer's dementia, pres ented to the ER after sustaining a fall onto her right hand with subsequent pain and deformity and ab rasion over the volar wrist. The patient was brought to the emergency room and had x-rays demonstrat ing a comminuted distal radius and ulna fracture. The patient is unable to give history secondary to her Alzheimer's dementia. Her son was to answer questions as well as discuss surgical treatment. Review of Systems: As above, otherwise unable to obtain secondary to dementia. Past Medical History: Includes Alzheimer's dementia, depression. Allergies: TO PENICILLIN. Social History: Lives at [facility]. Does not smoke. Physical Examination: General: No apparent distress. HEENT: Normocephalic, atraumatic. Neck: Supple. Cardiovascular: Brisk cap refill to all digits. Chest: Nonlabored breathing. Abdomen: Nondistended. Psychiatric: Responsive to exam. Musculoskeletal: Right upper extremity approximately a 7 mm opening over the volar aspect of the dis aniket ulna consistent with an inside-out puncture injury. Brisk cap refill in all digits. Moves ariel rs grossly. Reports mild paresthesias throughout her hand, however, is somewhat confused during the examination. No pain of the elbow or shoulder. Left upper extremity functional range of motion with out pain. No gross deformities. No obvious dislocations. Bilateral lower extremity functional rang e of motion without pain. No gross deformities. No obvious dislocations. X-rays: X-rays of the right wrist demonstrated comminuted distal radius and ulna fractures. Assessment And Plan: Gwendolyn is an 84-year-old female with a grade 1 open distal radius and ulna fractu re. Discussed with the patient and her son at length risks, benefits associated with operative and n onoperative treatment. Given the open injury, I recommend urgent irrigation and debridement as well as ORIF of her distal radius. Risks and benefits associated with the procedure were discussed at [facility] and they expressed understanding. She was given antibiotics in the emergency room. She will be admitted to the hospitalist service after surgery. CV/MODL Voice ID: [id number] Report ID: [id number]
[2020-06-19] MEDS ORDERED: Ringers Lactate 1,000 ML IV ONE (11:40)
[2020-06-19] MEDS ORDERED: GLYCOPYRROLATE 0.2 MG/ML SYR ONE (11:47)
[2020-06-19] MEDS ORDERED: NEOSTIGMINE 1 MG/ML -5 ML ONE (11:48)
--- NOTE | 2020-06-19 11:56 | P.BOP ---
Preoperative diagnosis: open right distal radius and ulna fractures Postoperative diagnosis: same Primary procedure: irrigation and debridement of open right distal radius and ulna fractures Secondary procedure: open reduction internal fixation of three part right distal radius fracture Geodetic Engineer: NONE,NONE Estimated blood loss: 10 cc Specimen: none Findings: see dictation Anesthesia: General Complications: None Implants: 3 hole narrow Acumed distal radius locking plate Fluids & blood products: per anesthesia record; TT: 80 mins @ 300 mmHg Transferred to: Recovery Room Condition: Good
[2020-06-19] MEDS ORDERED: TRAMADOL HCL 50 MG TAB PO PRN (12:11)
[2020-06-19] MEDS ORDERED: DOCUSATE NA 100 MG CAP PO PRN (12:11)
[2020-06-19] MEDS ORDERED: ONDANSETRON 4 MG/2 ML VIAL IV PRN (12:11)
[2020-06-19] MEDS ORDERED: MORPHINE 2 MG/ML SYR IV PRN (12:35)
--- NOTE | 2020-06-19 13:53 | RAD REPORT ---
EXAM DESCRIPTION: CT - Head C Spine Mpr Wo Con - 06/19/2020 7:01 am CLINICAL HISTORY: The patient is 84 years old and is Female; PAIN TECHNIQUE: Axial computed tomography images of the head/brain and cervical spine without intravenous contrast. Sagittal and coronal reformatted images were created and reviewed. This CT exam was pe rformed using one or more of the following dose reduction techniques: automated exposure control, a djustment of the mA and/or kV according to patient size, and/or use of iterative reconstruction techn ique. COMPARISON: No relevant prior studies available. FINDINGS: Brain: Mild nonspecific white matter changes likely related to chronic microvascular isc hemic disease. Mild cerebral atrophy. No hemorrhage. Ventricles: No ventriculomegaly. Skull: No acute fracture. Sinuses: Unremarkable as visualized. No acute sinusitis. Mastoid air cells: Unremarkable as visualized. No mastoid effusion. Vertebrae: No acute cervical spine fracture or subluxation. Discs/spinal canal/neural foramina: Disc space narrowing with degenerative endplate changes at C 4-C5, C5-C6, and C6-C7. Soft tissues: Unremarkable. IMPRESSION: 1. No acute intracranial abnormality. 2. No acute cervical spine fracture or subluxation. Electronically signed by: Fabien Oliveira MD 06/19/2020 6:53 AM CDT Due to temporary technical issues with the PACS/Fluency reporting system, reports are being signed by the in house radiologist without review as a courtesy to ensure prompt reporting. The interpreting r adiologist is fully responsible for the content of the report.
[2020-06-19] MEDS ORDERED: INFLUENZA VACCINE (for 3y+) 0.5 ML DOSE IMVAC ONE (14:00)
--- NOTE | 2020-06-19 15:38 | RAD REPORT ---
EXAM DESCRIPTION: RAD - Wrist Right 2 View - 06/19/2020 2:58 pm FINDINGS: Two-view right wrist examination performed following hardware placement. Cast material als o in place. Bones are in good anatomic alignment and position. No hardware abnormality.
[2020-06-19] MEDS ORDERED: CLINDAMYCIN INJ 600 MG in NA CHLORIDE 0.9% 50 ML IV SCH (17:00)
--- NOTE | 2020-06-19 19:21 | RAD REPORT ---
EXAM DESCRIPTION: RAD - Wrist Right 2 View - 06/19/2020 12:05 pm FINDINGS: There were 29 portable C-arm views obtained during fluoroscopic assisted placement of frac ture fixation hardware. Images show stepwise placement of the hardware. No suspicious or unexpected f indings. Fluoro time was 0.2 minutes. Cumulative dose was 0.529 mGy.
[2020-06-19 19:51] VITALS: BMI 23.5
[2020-06-19] MEDS ORDERED: NA CHLORIDE 0.9% 0 ML ONE (20:29)
[2020-06-19] MEDS ORDERED: CLINDAMYCIN 600MG/D5W 0 MG/0 ML BAG IV ONE (20:36)
[2020-06-19] MEDS ORDERED: CLINDAMYCIN IV 150 MG/ML (6 mL) VIAL ONE (20:48)
[2020-06-19] MEDS ORDERED: NA CHLORIDE 0.9% 50 ML ONE (20:49)
[2020-06-19 22:39] VITALS: O2SAT 93
[2020-06-20] MEDS ORDERED: NA CHLORIDE 0.9% 50 ML ONE (03:38)
[2020-06-20] MEDS ORDERED: CLINDAMYCIN IV 150 MG/ML (6 mL) VIAL ONE (03:42)
[2020-06-20] MEDS ORDERED: CLINDAMYCIN INJ 600 MG in NA CHLORIDE 0.9% 50 ML IV SCH (04:00)
[2020-06-20 06:20] LABS: Absolute Lymphocytes (CBC) 0.8 K/uL (0.7-4.9); Basophils % 0.3 % (0-1.3); Hematocrit 29.2 % (36.0-45.0); Lymphocytes % 10.6 % (15.3-44.8); MPV 7.2 fL (7.6-11.3); RBC Red Blood Cell Count 3.02 M/uL (3.86-4.86)
[2020-06-20 06:36] LABS: Albumin 2.7 g/dL (3.4-5.0); Bilirubin Total 0.5 mg/dL (0.2-1.0); Magnesium 2.4 mg/dL (1.8-2.4); Protein, Total 5.9 g/dL (6.4-8.2)
[2020-06-20] MEDS ORDERED: LORAZEPAM 0.5 MG TABLET PO PRN (07:04)
[2020-06-20] MEDS ORDERED: TRAMADOL HCL 50 MG TAB PO PRN (07:04)
--- NOTE | 2020-06-20 07:04 | P.HP ---
Certification for Inpatient Patient admitted to: Observation With expected LOS: <2 Midnights Patient will require the following post-hospital care: None Practitioner: I am a practitioner with admitting privileges, knowledge of patient current condition, hospital course, and medical plan of care. Services: Services provided to patient in accordance with Admission requirements found in Title 42 Section 412.3 of the Code of Federal Regulations Patient History Date of Service: 06/19/20 Reason for admission: comminuted distal radius and ulna fracture History of Present Illness: Patient is a 84-year-old female came to the hospital after falling and suffering a distal radial and ulnar fracture which was open. Patient was taken to the operating room by Dr. Agustin. Patient has multiple medical issues. Will go ahead and restart her home medications. Patient with dementia, hypertension, congestive heart failure, and she takes numerous medications. Will resume these medications. Monitor her post surgically. If she does well through the night and anticipate discharge home per Orthopedics. Allergies Penicillins Allergy (Verified 11/29/14 12:44) Rash Home Medications: Acetaminophen 2 tab PO Q6H PRN 06/20/20 Acetaminophen 2 tab PO TID 06/20/20 Aspirin [Aspirin EC] 81 mg PO DAILY 06/20/20 Calcium Carbonate/Vitamin D3 [Oyster Shell Calcium-Vit D Tab] 1 each PO DAILY 06/20/20 Ferrous Sulfate 325 mg PO DAILY 06/20/20 Fluticasone Propion/Salmeterol [Wixela 250-50 Inhub] 1 puff IH DAILY 06/20/20 Furosemide 40 mg PO DAILY 06/20/20 Hydrocortisone Butyrate/Emoll [Hydrocort Buty 0.1% Lipo Cream] 1 appl TP BID 06/20/20 LORazepam [Ativan] 0.5 mg PO Q12H PRN 06/20/20 Metoprolol Succinate 25 mg PO DAILY 06/20/20 Omeprazole 20 mg PO DAILY 06/20/20 Potassium Chloride 10 meq PO DAILY 06/20/20 Sertraline HCl 50 mg PO DAILY 06/20/20 Sulfamethoxazole/Trimethoprim [Bactrim 400-80 mg Tablet] 2 each PO BID 06/20/20 Tramadol HCl [Ultram] 50 mg PO Q12H PRN 06/20/20 Trazodone HCl 50 mg PO BEDTIME 06/20/20 predniSONE [Deltasone] 10 mg PO DAILY 06/20/20 risperiDONE [Risperidone] 0.5 mg PO Q12HP PRN 06/20/20 - Past Medical/Surgical History Has patient received pneumonia vaccine in the past: Yes Diabetic: No -: dementia -: asthma Past Surgical History: Unable to obtain - Family History Father Family History: Reviewed- Non-Contributory - Social History Smoking Status: Never smoker Alcohol use: No CD- Drugs: No Caffeine use: No Place of Residence: Care Home Review of Systems 10-point ROS is otherwise unremarkable Physical Examination - Vital Signs Temperature: 97.4 F Blood Pressure: 115/55 Pulse: 96 Respirations: 17 Pulse Ox (%): 93 - Physical Exam General: Alert, In no apparent distress, Demented HEENT: Atraumatic, PERRLA, Mucous membr. moist/pink, EOMI, Sclerae nonicteric Neck: Supple, 2+ carotid pulse no bruit, No LAD, Without JVD or thyroid abnorma lity Respiratory: Diminished, Crackles/rales Cardiovascular: Regular rate/rhythm, Normal S1 S2, Systolic murmur Gastrointestinal: Normal bowel sounds, Soft and benign, Non-distended, No tenderness Musculoskeletal: No clubbing, No swelling, No tenderness Integumentary: Tenderness/swelling, Erythema Neurological: Normal speech, Normal tone, Normal affect, Abnormal strength, Dementia Lymphatics: No axilla or inguinal lymphadenopathy Assessment & Plan - Problems (Diagnosis) (1) Fracture of radial shaft, with ulna, open Current Visit: Yes Status: Acute (2) Alzheimer's dementia Current Visit: Yes Status: Acute (3) Hypertension Current Visit: Yes Status: Acute (4) CHF (congestive heart failure) Current Visit: Yes Status: Acute - Plan plan: 1. Pain control 2. Management per Orthopedics; outpatient follow-up in 1-2 weeks 3. Strict blood pressure control 4. Discharge on clindamycin 5. GI and DVT prophylaxis Discharge Plan: Home Plan to discharge in: 48 Hours - Advance Directives Does patient have a Living Will: Yes Does patient have a Durable POA for Healthcare: Yes - Code Status/Comfort Care Code Status Assessed: Yes Code Status: Full Code Critical Care: No Time Spent Managing PTS Care (In Minutes): 45
[2020-06-20] MEDS ORDERED: RISPERIDONE 0.25 MG TABLET PO PRN (07:41)
[2020-06-20 08:22] VITALS: BP 108/58; TEMP 97.6
[2020-06-20] MEDS ORDERED: FUROSEMIDE 40 MG TABLET PO SCH (09:00)
[2020-06-20] MEDS ORDERED: [UNRECOGNIZED DRUG - OTHER] TP SCH (09:00)
[2020-06-20] MEDS ORDERED: predniSONE 10 MG TAB PO SCH (09:00)
[2020-06-20] MEDS ORDERED: METOPROLOL XL 25 MG TAB PO SCH (09:00)
[2020-06-20] MEDS ORDERED: HOME MED 1 EA UNK (Fluticasone Propion/Salmeterol [Wixela 250-50 Inhub] Blst.W.Dev) IH SCH (09:00)
[2020-06-20] MEDS ORDERED: HOME MED 1 EA UNK (Omeprazole [Omeprazole] 20 MG Capsule.Dr) PO SCH (09:00)
[2020-06-20] MEDS ORDERED: PANTOPRAZOLE 40MG TABLET PO SCH (09:00)
[2020-06-20] MEDS ORDERED: HYDROCORTISONE BUTYRATE TP SCH (09:00)
[2020-06-20] MEDS ORDERED: CALCIUM CARB 500MG/VIT D 200 IU TAB PO SCH (09:00)
[2020-06-20] MEDS ORDERED: FERROUS SULFATE 325 MG TAB PO SCH (09:00)
[2020-06-20] MEDS ORDERED: SERTRALINE HCL 50 MG TAB PO SCH (09:00)
[2020-06-20] MEDS ORDERED: POTASSIUM CL SA 10 MEQ TAB PO SCH (09:00)
--- NOTE | 2020-06-20 13:15 | P.DS ---
Discharge Date: 06/20/20 Disposition: ROUTINE DISCHARGE Discharge Condition: GOOD Reason for Admission: comminuted distal radius and ulna fracture - Problems (1) Fracture of radial shaft, with ulna, open Status: Acute (2) Alzheimer's dementia Status: Acute (3) Hypertension Status: Acute (4) CHF (congestive heart failure) Status: Acute Brief History of Present Illness: Patient is a 84-year-old female came to the hospital after falling and suffering a distal radial and ulnar fracture which was open. Patient was taken to the operating room by Dr. Agustin. Patient has multiple medical issues. Will go ahead and restart her home medications. Patient with dementia, hypertension, congestive heart failure, and she takes numerous medications. Will resume these medications. Monitor her post surgically. If she does well through the night and anticipate discharge home per Orthopedics. Hospital Course: Patient has done well in the postoperative period. At this time patient is stable for discharge and will follow with Orthopedic in 1-2 weeks. Continue with pain medication and clindamycin. Return to the ER if symptoms worsen. Vital Signs/Physical Exam: Temp Pulse Resp BP Pulse Ox 97.6 F 107 H 18 108/58 L 93 06/20/20 08:00 06/20/20 08:00 06/20/20 08:00 06/20/20 08:00 06/20/20 08:00 General: Alert, Demented Laboratory Data at Discharge: WBC 7.80 K/uL (4.3-10.9) 06/20/20 05:57 Hgb 10.1 g/dL (12.0-15.0) L 06/20/20 05:57 Hct 29.2 % (36.0-45.0) L 06/20/20 05:57 Plt Count 202 K/uL (152-406) 06/20/20 05:57 Sodium 143 mmol/L (136-145) 06/20/20 05:57 Potassium 4.0 mmol/L (3.5-5.1) 06/20/20 05:57 BUN 21 mg/dL (7-18) H 06/20/20 05:57 Creatinine 1.05 mg/dL (0.55-1.3) 06/20/20 05:57 Glucose 91 mg/dL (74-106) 06/20/20 05:57 Magnesium 2.4 mg/dL (1.8-2.4) 06/20/20 05:57 Total Bilirubin 0.5 mg/dL (0.2-1.0) 06/20/20 05:57 AST 11 U/L (15-37) L 06/20/20 05:57 ALT 18 U/L (12-78) 06/20/20 05:57 Alkaline Phosphatase 107 U/L (45-117) 06/20/20 05:57 Home Medications: Acetaminophen 2 tab PO Q6H PRN 06/20/20 Acetaminophen 2 tab PO TID 06/20/20 Aspirin [Aspirin EC] 81 mg PO DAILY 06/20/20 Calcium Carbonate/Vitamin D3 [Oyster Shell 500-Vit D3 200 Tb] 1 each PO DAILY 06/20/20 Docusate [Colace Cap*] 200 mg PO DAILY PRN #30 cap 06/20/20 Ferrous Sulfate 325 mg PO DAILY 06/20/20 Fluticasone Propion/Salmeterol [Wixela 250-50 Inhub] 1 puff IH DAILY 06/20/20 Furosemide 40 mg PO DAILY 06/20/20 Hydrocortisone Butyrate/Emoll [Hydrocort Buty 0.1% Lipo Cream] 1 appl TP BID 06/20/20 LORazepam [Ativan*] 0.5 mg PO Q12H PRN 06/20/20 Metoprolol Succinate 25 mg PO DAILY 06/20/20 Omeprazole 20 mg PO DAILY 06/20/20 Pantoprazole [Protonix Tab*] 40 mg PO DAILY #30 tab 06/20/20 Potassium Chloride 10 meq PO DAILY 06/20/20 Sertraline HCl 50 mg PO DAILY 06/20/20 Sulfamethoxazole/Trimethoprim [Bactrim 400-80 mg Tablet] 2 each PO BID 06/20/20 Tramadol HCl [Ultram] 50 mg PO Q12H PRN 06/20/20 Trazodone HCl 50 mg PO BEDTIME 06/20/20 clindamycin HCL [Clindamycin HCl] 300 mg PO TID #21 capsule 06/20/20 predniSONE [Deltasone*] 10 mg PO DAILY 06/20/20 risperiDONE [Risperidone] 0.5 mg PO Q12HP PRN 06/20/20 New Medications: clindamycin HCL [Clindamycin HCl] 300 mg PO TID #21 capsule Docusate [Colace Cap*] 200 mg PO DAILY PRN #30 cap PRN Reason: Constipation Pantoprazole [Protonix Tab*] 40 mg PO DAILY #30 tab Physician Discharge Instructions: OK TO DC IV AND DC HOME FOLLOW-UP WITH PRIMARY CARE PROVIDER IN 1-2 WEEKS FOLLOW-UP WITH ORTHOPEDICS IN 1 WEEK RETURN TO THE ER IF symptoms worsens CALL or TEXT DR. HOLCOMB AT [phone] IF ANY QUESTIONS REGARDING HOSPITAL STAY. PLEASE CALL THE FLOOR AT [phone] IF ANY MEDICATION OR NURSING QUESTIONS. Diet: AHA Activity: Fall precautions Followup: NONE,NONE [Primary Care Provider] - Shalom Agustin MD [ACTIVE - CAN ADMIT] - Time spent managing pt's care (in minutes): 35
[2020-06-20] MEDS ORDERED: TRAZODONE 50 MG TABLET PO SCH (21:00)
--- NOTE | 2020-06-23 11:29 | OP ---
Date of Procedure: 06/19/2020 Surgeon: Shlaom Agustin MD Preoperative Diagnosis: Right open distal radius and ulna fracture. Postoperative Diagnosis: Right open three-part distal radius and ulnar fracture. Procedure Performed: Irrigation and debridement of right open distal radius and ulnar fractures. Open reduction and internal fixation of right open three-part distal radius fracture. Anesthesia: General endotracheal. Fluids: Per Anesthesia record. Ebl: 20 cc. Complications: None. Implants: Three-hole narrow Acumed distal radius locking plate. Tourniquet Time: 80 minutes at 250 mmHg. Indications For Procedure: Gwendolyn is an 84-year-old female who presented to the ER this morning after sustaining a fall on to her right wrist with subsequently pain, deformity and laceration over the volar wrist. On exam and on xrays she was noted to have comminuted distal radius fracture as well as small laceration over the volar aspect of the wrist. Antibiotics were ordered urgently and the patient was then taken back for irrigation and debridement as well as open reduction and internal fixation given her open fracture. I discussed with the patient and her son at length risks and benefits associated with operative and nonoperative treatment. They expressed understanding and elected to proceed with operative treatment. Description Of Procedure: After informed consent was obtained, the patient was identified in preop holding area. The right upper extremity was marked. The patient was then brought back to the operating room, transferred to the operating table in supine fashion, placed under general endotracheal anesthesia. The right upper extremity was then prepped and draped in usual sterile fashion. A time-out was initiated. Correct patient and procedure were confirmed and identified. The patient did receive her preoperative prophylactic antibiotics. The right upper extremity was then exsanguinated using an Esmarch and tourniquet was inflated to 300 mmHg. She had an approximately 2 mm poke hole on the volar aspect at the distal ulna fracture. It was lengthened both proximally and distally for approximately 2 cm. There was no foreign material and the wound was overall clean. It was debrided to the level of the bone using a curette an irrigated thoroughly with 3 L of normal saline. Skin was then approximated using a 3-0 nylon. Next, a volar Afshin approach was taken to the distal radius. Dissection was then taken down to the flexor carpi radialis where the tendon sheath was encountered and tendon sheath was then opened up. FCR tendon was then retracted radially. Floor of the tendon sheath was then opened using a 15 blade and released proximally and distally in line of the incision. The fracture was then encountered. It was then reduced and placed in traction. Once reduced, it was confirmed using fluoroscopy. A K-wire was then used to hold the fracture reduced. After this was completed, a 3-hole narrow Acumed distal radius locking plate was placed over the distal radius. Proper positioning of the plate on sandra radius and the reduction was then confirmed using fluoroscopy. After this was confirmed, a proximal cortical screw was placed in the proximal aspect of the plate to fix the plate to the shaft. Again x-rays were taken to confirm proper reduction as well as placement of the plate. This was confirmed. Next, a single distal cortical screw was placed to reduce plate to the distal fragment. Proper positioning was confirmed with fluoroscopy. Four distal unicortical locking screws were then placed in distal fragment through the plate with good overall fixation of the distal fragment followed by bicortical screws in the proximal segment. Final x-rays were taken to confirm overall reduction as well as placement of the plate and this was confirmed using fluoroscopy. The wound was then irrigated thoroughly with normal saline. Subcutaneous tissue was approximated using a 2-0 Vicryl. Skin was approximated using a 3-0 nylon. Sterile dressings were applied. The patient was placed in a sugar-tong splint. Tourniquet was let down and awakened and transferred to PACU in stable condition. Postoperative Plan: The patient will be nonweightbearing on her right upper extremity. She will follow up in my clinic in 2 weeks for check and suture removal. HANS/MODL Voice ID: [id number] Report ID: [id number] YOU
== END 2020-06-20 11:40 | disposition home or self-care (01) ==
LOC: ER 05:47 → ERHOLD 12:11 → 2ND 13:15
PROVIDERS: ADMIT Hospitalist; ATTEND Internal Medicine Nephrology
PROC: 0PSK04Z Reposition Right Ulna with Internal Fixation Device, Open Approach (ICD-10-PCS; 2020-06-19)
PROC: 0PSH04Z Reposition Right Radius with Internal Fixation Device, Open Approach (ICD-10-PCS; principal; 2020-06-19 14:15)
DX: S52.351B Displaced comminuted fracture of shaft of radius, right arm, initial encounter for open fracture type I or II (principal); S52.251B Displaced comminuted fracture of shaft of ulna, right arm, initial encounter for open fracture type I or II; S60.811A Abrasion of right wrist, initial encounter; W01.0XXA Fall on same level from slipping, tripping and stumbling without subsequent striking against object, initial encounter; Y92.091 Bathroom in other non-institutional residence as the place of occurrence of the external cause; Y92.9 Unspecified place or not applicable; G30.9 Alzheimer's disease, unspecified; F02.80 Dementia in other diseases classified elsewhere, unspecified severity, without behavioral disturbance, psychotic disturbance, mood disturbance, and anxiety; I11.0 Hypertensive heart disease with heart failure; I50.9 Heart failure, unspecified; J45.909 Unspecified asthma, uncomplicated; K59.00 Constipation, unspecified; F32.9 Major depressive disorder, single episode, unspecified; Z79.82 Long term (current) use of aspirin; Z88.0 Allergy status to penicillin; Z20.822 Contact with and (suspected) exposure to COVID-19
CPT/HCPCS: 36415; 70450; 72125; 80053; 83735; 85014; 85018; 85025; 96374; 96375; 99285; G0378; J1100; J2270; J2405; J2704; J2710; J3010; J7120; J7512; U0003

== ENCOUNTER 2022-02-12 10:10 | Emergency (ER) | payer BC ==
--- OUTSIDE RECORDS SUMMARY | 2022-02-12 10:14 | XMS REPORT | Continuity of Care Document ---
:1935 Author Organization [facility] t Address [address] [place] [address] Care Team Providers Name Role Phone ANNE ORNELAS Primary Care Physician Unavailable CHEMA ROSE Attending Clinician Unavailable Chema Rose MD Attending Clinician ROM CORTES Attending Clinician Unavailable CLEMENCIA RECIO Attending Clinician Unavailable MEGAN AUSTIN Attending Clinician Unavailable LYNDSEY FAROOQ III Attending Clinician Unavailable CLEMENCIA RECIO Admitting Clinician Unavailable ANNE ORNELAS Admitting Clinician Unavailable Payers Payer Name Policy Type Policy Number Effective Date Expiration Date S ource MANAGED MEDICARE [id number] 2019 PPO/FFS GENERIC 00:00:00 [facility] - [id number] 2019 OUT OF STATE 00:00:00 MANAGED MEDICARE [id number] 2019 HMO GENERIC 00:00:00 MEDICARE PART A [id number] \T\ B 00:00:00 Problems This patient has no known problems. Allergies, Adverse Reactions, Alerts Allergy Allergy Status Severity Reaction(s) Onset Inactive Treating Comm ents Source Name Type Date Date Clinician PENICILL Drug Active Unknown-Cmnt 2018-0 Un maria eugenia INS Class 6-19 ity of 00:00: [place] [id number] [facility] Medications This patient has no known medications. Procedures This patient has no known procedures. Encounters Start End Encounter Admission Attending Care Care Encounter Source Date/Time Date/Time Type Type Clinicians Facility Department ID 2020-02-28 2020-02-28 Outpatient Claudette ROSE [facility] [id number] Univers 11:10:00 11:10:00 CHEMA lars [facility] 2019-11-15 2019-11-23 Office Anika [facility] [id number] 11:24:40 07:35:58 Visit Chema [facility] [id number] [facility] [id number] [facility] [id number] 2019-11-15 2019-11-15 Outpatient R ANIKA [facility] [id number] Univers 11:10:00 11:10:00 CHEMA [facility] 2019-11-07 2019-11-07 [facility] [id number] 00:00:00 00:00:00 Chema [facility] [id number] [facility] [id number] [place] [id number] 2019-10-18 2019-10-18 [facility] [id number] [facility] 15:20:00 15:20:00 CHEMA lars [facility] 2019-09-28 2019-09-28 Outpatient R SEBASTIAN [facility] [id number] Univers 19:00:00 19:00:00 ROM [facility] 2019-09-06 2019-09-13 [facility] [id number] Univers 23:00:32 18:16:00 CLEMENCIA [facility] 2019-05-08 2019-05-08 Outpatient R NORMAN [facility] [id number] Univers 10:30:00 11:32:02 MEGAN [facility] 2018-12-23 2018-12-23 Emergency X CAPRI III, [facility] ERT [id number] Univers 13:06:25 15:01:00 LYNDSEY [facility] 2018-10-31 2018-10-31 Outpatient R [facility] [id number] Univers 00:00:00 00:00:00 [facility] Results This patient has no known results.
--- NOTE | 2022-02-12 11:34 | RAD REPORT ---
EXAM DESCRIPTION: CT - Abdomen Pelvis Wo Contrast - 02/12/2022 10:53 am CLINICAL HISTORY: Abdominal pain, acute, nonlocalized COMPARISON: No comparisons TECHNIQUE: Axial [address] imaging of the abdomen and pelvis was performed without IV contrast. No IV contrast was given because of allergy, abnormal renal function, patient refusal or physician re quest. No oral contrast. All CT scans are performed using dose optimization technique as appropriate and may include automated exposure control or mA/KV adjustment according to patient size. FINDINGS: Granulomatous type calcifications are seen in each lung base. No acute lung base finding. No cardiomegaly or pericardial effusion. Coronary artery calcifications are present. The liver, spleen and pancreas show no suspicious findings on non-contrast imaging. Numerous punctate gallstones layer along the dependent portion of a well filled but nondilated gallbladder. No wall th ickening or pericholecystic fluid. No suspicion for duct stone or biliary tree dilatation. Renal function cannot be assessed on a noncontrast study. There is no hydronephrosis present. Patient has numerous large staghorn type calcifications filling the calices and pelvis of each kidney. Air o r low-density areas adjacent to the calcifications could possibly be air within the ureters or R an a rtifact caused by the dense calcification. There is a 2.8 centimeter low-density rounded mass posteri or lower right kidney that is probably a minimally complex cyst. No significant adrenal finding. Iso dense renal masses and pyelonephritis cannot be excluded in the absence of IV contrast. Moderate amou nt of air is present within the lumen of the urinary bladder. This is presumed to be related to tomer terization. This needs correlation. No bladder wall thickening, mass or bladder calculus. No gastric wall thickening, edema or gastric mass identifiable. Gastric lumen is empty of fluid liz nt. There are no dilated large or small bowel loops. Patient has very prominent diverticulosis but no acute diverticulitis. A primary colon mass is not identifiable. No free air, free fluid or inflammatory stranding. No hernia, mass or bulky lymphadenopathy. Disc and bone degenerative changes are present. Old pelvic fractures are present. Surgical hardware i s present at each hip joint. The artifact limits pelvic floor assessment. An acute bone process is no t identified. IMPRESSION: Prominent diverticulosis in the sigmoid colon. No diverticulitis, mass or other acute co desiree finding. No abnormality seen to explain bloody stools. Complex cyst in the lower pole of the right kidney. This can be monitored with follow-up outpatient r enal ultrasound. Nonobstructing staghorn type calcifications seen in the nondilated renal pelves and calices. Air is seen in the lumen of the urinary bladder. This is presumably from a catheterization procedure. Fish Nichelle or infectious etiology is not suspected. Air density adjacent to the proximal calculi ma y be a CT artifact or possibly retrograde movement of the air from the lumen of the bladder. Full assessment is limited is the absence of IV contrast.
--- NOTE | 2022-02-12 11:59 | RAD REPORT ---
EXAM DESCRIPTION: RAD - Chest Single View - 02/12/2022 11:52 am CLINICAL HISTORY: COUGH COMPARISON: Portable 12/31/2021 TECHNIQUE: AP portable chest image was obtained 02/12/2022 11:52 am . FINDINGS: No focal infiltrate or mass. Prominent interstitial pattern has not changed. Innumerable g ranulomatous type calcifications are scattered throughout the lung malloy. No dominant mass lesions s een. Hilar regions within normal range. Heart and vasculature are normal. No measurable pleural effusion and no pneumothorax. No acute bony abnormality seen. No acute aortic findings suspected. IMPRESSION: No acute cardiopulmonary process. Chest findings are stable from December 31.
[2022-02-12 12:22] LABS: SARS-CoV-2 Antigen Rapid Res Positive (Negative)
[2022-02-12] MEDS ORDERED: NA CHLORIDE 0.9% 250 ML ONE (12:38)
[2022-02-12] MEDS ORDERED: PANTOPRAZOLE 40 MG INJ ONE ×2 (12:38→12:39)
[2022-02-12] MEDS ORDERED: NA CHLORIDE 0.9% 1,000 ML ONE (12:38)
--- NOTE | 2022-02-12 13:54 | EDPHYS ---
Physician Documentation [facility] Name: Gwendolyn Guillory Age: 86 yrs Sex: Female : 1935 Arrival Date: 02/12/2022 Time: 10:14 Bed 16 Private MD: ED Physician Mehrdad Garza HPI: 02/12 10:38 This 86 yrs old Female presents to ER via EMS with complaints of black stools.marj 10:38 The patient presents to the emergency department with rectal bleeding, melena. Onset: marj The symptoms/episode began/occurred 2 day(s) ago. Abdominal pain: none is appreciated. Modifying factors: The symptoms are alleviated by nothing, the symptoms are aggravated by nothing. Associated signs and symptoms: The patient has no apparent associated signs or symptoms. Severity of symptoms: At their worst the symptoms were mild in the emergency department the symptoms are unchanged. It is unknown whether or not the patient has had similar symptoms in the past. Historical: - Allergies: 10:38 meloxicam; kr3 10:38 PENICILLINS; kr3 - PMHx: 10:38 Alzheimers; Anxiety; Asthma; Bullous Pemphigoid; Dementia; Depression; EDEMA; kr3 Hypertensive disorder; Intrinsic Eczema; - Immunization history:: Adult Immunizations up to date. - Social history:: Smoking status: unknown. ROS: 10:40 Constitutional: Negative for fever, chills, and weight loss, Eyes: Negative for injury, marj pain, redness, and discharge, ENT: Negative for injury, pain, and discharge, Neck: Negative for injury, pain, and swelling, Cardiovascular: Negative for chest pain, palpitations, and edema, Respiratory: Negative for shortness of breath, cough, wheezing, and pleuritic chest pain, Back: Negative for injury and pain, : Negative for injury, bleeding, discharge, and swelling, MS/Extremity: Negative for injury and deformity, Skin: Negative for injury, rash, and discoloration, Neuro: Negative for headache, weakness, numbness, tingling, and seizure, Psych: Negative for depression, anxiety, suicide ideation, homicidal ideation, and hallucinations, Allergy/Immunology: Negative for hives, rash, and allergies, Endocrine: Negative for neck swelling, polydipsia, polyuria, polyphagia, and marked weight changes, Hematologic/Lymphatic: Negative for swollen nodes, abnormal bleeding, and unusual bruising. 10:40 Abdomen/GI: Positive for black/tarry stool. Exam: 10:40 Constitutional: This is a well developed, well nourished patient who is awake, alert, marj and in no acute distress. Head/Face: Normocephalic, atraumatic. Eyes: Pupils equal round and reactive to light, extra-ocular motions intact. Lids and lashes normal. Conjunctiva and sclera are non-icteric and not injected. Cornea within normal limits. Periorbital areas with no swelling, redness, or edema. ENT: Nares patent. No nasal discharge, no septal abnormalities noted. Tympanic membranes are normal and external auditory canals are clear. Oropharynx with no redness, swelling, or masses, exudates, or evidence of obstruction, uvula midline. Mucous membranes moist. Neck: Trachea midline, no thyromegaly or masses palpated, and no cervical lymphadenopathy. Supple, full range of motion without nuchal rigidity, or vertebral point tenderness. No Meningismus. Chest/axilla: Normal chest wall appearance and motion. Nontender with no deformity. No lesions are appreciated. Cardiovascular: Regular rate and rhythm with a normal S1 and S2. No gallops, murmurs, or rubs. Normal PMI, no JVD. No pulse deficits. Respiratory: Lungs have equal breath sounds bilaterally, clear to auscultation and percussion. No rales, rhonchi or wheezes noted. No increased work of breathing, no retractions or nasal flaring. Back: No spinal tenderness. No costovertebral tenderness. Full range of motion. Female : Normal external genitalia. Skin: Warm, dry with normal turgor. Normal color with no rashes, no lesions, and no evidence of cellulitis. MS/ Extremity: Pulses equal, no cyanosis. Neurovascular intact. Full, normal range of motion. Psych: Awake, alert, with orientation to person, place and time. Behavior, mood, and affect are within normal limits. 10:40 Abdomen/GI: Inspection: bruising, Bowel sounds: normal, Palpation: abdomen is soft and non-tender, soft, Rectal exam: rectal tone normal, Stool: guaiac positive, black, hemorrhoid(s), are not appreciated, mass, is not appreciated, swelling, is not appreciated, tenderness, is not appreciated, fecal impaction, is not appreciated, Liver: no appreciated palpable abnormalities, Hernia: not appreciated. 13:47 Abdomen/GI: Palpation: Rectal exam: Stool: [facility] 14:22 ECG was reviewed by the Attending Physician. [facility] Vital Signs: 10:32 BP 106 / 73; Pulse 108; Resp 18; Temp 98.2(A); Pulse Ox 99% on R/A; kr3 Procedures: 14:18 Peripheral line: by aseptic technique a peripheral line was placed in the right [facility] external jugular vein. MDM: 10:32 Patient medically screened. marj 10:42 Differential diagnosis: gastritis, diverticulitis, hemorrhoids, hemorrhagic shock, marj varices. Differential Diagnosis: UTI, volume depletion. Data reviewed: vital signs, nurses notes, lab test result(s), EKG, radiologic studies, CT scan, plain films. Data interpreted: hearing aid consultant: rate is 108 beats/min, rhythm is regular, Pulse oximetry: on room air is 99 %. Test interpretation: by ED physician or midlevel provider: ECG, plain radiologic studies. Counseling: I had a detailed discussion with the patient and/or guardian regarding: the historical points, exam findings, and any diagnostic results supporting the discharge/admit diagnosis, lab results, radiology results. 16:08 ED course: [facility] , [facility] [place], dc to [facility] on hospice care. [facility] 02/12 10:37 Order name: Basic Metabolic Panel; Complete Time: 16:04 [facility] 02/12 10:37 Order name: CBC with Diff; Complete Time: 16:04 marj 02/12 10:37 Order name: LFT's; Complete Time: 16:04 [facility] 02/12 10:37 Order name: Magnesium; Complete Time: 16:04 [facility] 02/12 10:37 Order name: NT PRO-BNP; Complete Time: 16:04 [facility] 02/12 10:37 Order name: PT-INR; Complete Time: 16:04 [facility] 02/12 10:37 Order name: Troponin HS; Complete Time: 16:04 [facility] 02/12 10:37 Order name: XRAY Chest (1 view); Complete Time: 13:45 [facility] 02/12 10:37 Order name: SARS RAPID; Complete Time: 13:45 [facility] 02/12 10:37 Order name: Type And Screen [facility] 02/12 10:37 Order name: Lipase; Complete Time: 16:04 [facility] 02/12 10:38 Order name: CT Abd/Pelvis - Without Contrast; Complete Time: 13:45 [facility] 02/12 10:51 Order name: Bb Add On ss 02/12 10:37 Order name: EKG; Complete Time: 10:37 [facility] 02/12 10:37 Order name: Cardiac monitoring; Complete Time: 12:31 [facility] 02/12 10:37 Order name: EKG - Nurse/Tech; Complete Time: 13:31 [facility] 02/12 10:37 Order name: IV Saline Lock; Complete Time: 12:31 [facility] 02/12 10:37 Order name: Labs collected and sent; Complete Time: 14:18 [facility] 02/12 10:37 Order name: O2 Per Protocol; Complete Time: 12: [facility] 02/12 10:37 Order name: O2 Sat Monitoring; Complete Time: 12:31 [facility] 02/12 10:37 Order name: IV Saline Lock - Large Bore; Complete Time: 14:18 [facility] 02/12 10:37 Order name: Urine Dipstick-Ancillary (obtain specimen) [facility] EC: Rate is 84 beats/min. Rhythm is regular. QRS [place] is Normal. VA interval is normal. QRS marj interval is normal. QT interval is normal. No Q waves. T waves are Normal. No ST changes noted. Clinical impression: NSR w/ Non-specific ST/T Changes and No evidence of ischemia. Interpreted by me. Reviewed by me. Administered Medications: 13:06 Drug: ProTONIX (pantoprazole) 80 mg Route: IVP; Site: left antecubital; kr3 13:06 Drug: ProTONIX (pantoprazole) 8 mg/hr Route: IV; Rate: 25 ml/hr; Site: left antecubital;kr3 13:06 Drug: NS 0.9% 1000 ml Route: IV; Rate: 125 ml/hr; Site: left antecubital; kr3 Disposition Summary: 02/12/22 16:13 Discharge Ordered Location: Home(02/12/22 16:13) marj Problem: new(02/12/22 16:13) marj Symptoms: have improved(02/12/22 16:13) marj Condition: Stable(02/12/22 16:13) marj Diagnosis - UTI/ Urinary tract infection, site not specified(02/12/22 16:13) marj - Acute kidney failure, unspecified marj - Hypokalemia marj - Dehydration marj - Do not resuscitate(02/12/22 16:13) marj - GI Bleed/ Gastrointestinal hemorrhage, unspecified(02/12/22 16:13) marj - Elevated white blood cell count marj - SARS-associated coronavirus as the cause of diseases classified elsewhere marj - Diverticulosis of small intestine without perforation or abscess with bleeding marj - Pyelonephritis acute - emphysematous marj Followup: marj - With: Private Physician - When: As needed - Reason: Recheck today's complaints, Re-evaluation by your physician Discharge Instructions: - Discharge Summary Sheet ss Forms: - Medication Reconciliation Form marj - Thank You Letter marj - Antibiotic Education marj - Prescription Opioid Use marj - SBAR form ss Signatures: Dispatcher [employer] EDMS Mehrdad Garza MD MD cha Reid, Kelley RN RN kr3 Corrections: (The following items were deleted from the chart) 14:18 13:[address] [facility] marj marj 14:18 13:53 [facility] marj marj 14:18 13:53 Higher level of care marj marj 14:18 13:53 Fair marj marj 14:18 13:53 new marj marj 14:18 13:53 are unchanged marj marj 14:18 13:53 UTI/ Urinary tract infection, site not specified marj marj 14:18 13:53 Anemia, unspecified marj marj 14:18 13:53 Dementia in other diseases classified elsewhere without behavioral disturbance martina 14:18 13:53 GI Bleed/ Gastrointestinal hemorrhage, unspecified marj marj 16:08 14:21 Inpatient Admission marj marj 16:08 14:21 [facility] marj marj 16:08 14:21 Telemetry/MedSurg (Inpatient) marj marj 16:08 14:21 Serious marj marj 16:08 14:21 new marj marj 16:08 14:21 are unchanged marj marj 16:08 14:21 Standard marj marj 16:08 14:21 marj marj 16:08 14:21 UTI/ Urinary tract infection, site not specified marj marj 16:08 14:21 GI Bleed/ Gastrointestinal hemorrhage, unspecified - upper marj marj 16:08 14:21 Dementia in other diseases classified elsewhere without behavioral disturbance martina 16:08 14:21 Do not resuscitate marj marj
--- NOTE | 2022-02-12 13:54 | ER ---
Nurse's Notes [facility] [place] Name: Gwendolyn Guillory Age: 86 yrs Sex: Female : 1935 Arrival Date: 02/12/2022 Time: 10:14 Bed 16 Private MD: Diagnosis: UTI/ Urinary tract infection, site not specified;Acute kidney failure, unspecified;Hypokalemia;Dehydration;Do not resuscitate;GI Bleed/ Gastrointestinal hemorrhage, unspecified;Elevated white blood cell count;SARS-associated coronavirus as the cause of diseases classified elsewhere;Diverticulosis of small intestine without perforation or abscess with bleeding;Pyelonephritis acute-emphysematous Presentation: 02/12 10:32 Chief complaint: EMS states: from [facility], they sent her over due to low blood kr3 pressure today and black tarry stool yesterday. Patient has dementia, BGL 124. Coronavirus screen:. Coronavirus screen: Client denies travel out of the [place] in the last 14 days. Ebola Screen: Patient denies travel to an Ebola-affected area in the 21 days before illness onset. Initial Sepsis Screen: Does the patient meet any 2 criteria? Altered Mental Status. HR > 90 bpm. Yes Does the patient have a suspected source of infection? Yes: Skin breakdown/wound. Risk Assessment: Do you want to hurt yourself or someone else? Patient reports no desire to harm self or others. Onset of symptoms was February 11, 2022. 10:32 Method Of Arrival: EMS kr3 10:32 Acuity: JACINTO 3 kr3 Triage Assessment: 10:39 General: Appears uncomfortable, Behavior is agitated. Pain: Unable to use pain scale. kr3 dementia. 10:41 Neuro: Level of Consciousness is awake. Cardiovascular: Patient's skin is warm and dry. kr3 Respiratory: Airway is patent. GI: Abdomen is round distended. : No signs and/or symptoms were reported regarding the genitourinary system. Derm: Wound noted buttocks. Musculoskeletal: Circulation, motion, and sensation intact. Historical: - Allergies: 10:38 meloxicam; kr3 10:38 PENICILLINS; kr3 - PMHx: 10:38 Alzheimers; Anxiety; Asthma; Bullous Pemphigoid; Dementia; Depression; EDEMA; kr3 Hypertensive disorder; Intrinsic Eczema; - Immunization history:: Adult Immunizations up to date. - Social history:: Smoking status: unknown. Vital Signs: 10:32 BP 106 / 73; Pulse 108; Resp 18; Temp 98.2(A); Pulse Ox 99% on R/A; kr3 ED Course: 10:14 Patient arrived in ED. eb 10:32 Mehrdad Garza MD is Attending Physician. marj 10:38 Triage completed. kr3 10:43 Arm band placed on right wrist. kr3 10:55 CT Abd/Pelvis - Without Contrast In Process Unspecified. EDMS 11:31 Zacarias Ayers, RN is Primary Nurse. bp 11:54 XRAY Chest (1 view) In Process Unspecified. EDMS 12:30 Florina Lujan, RN is Primary Nurse. kr3 14:19 Blue Zavala MD is Hospitalizing Provider. marj 17:34 No provider procedures requiring assistance completed. IV discontinued, intact, ss bleeding controlled, No redness/swelling at site. Pressure dressing applied. Administered Medications: 13:06 Drug: ProTONIX (pantoprazole) 80 mg Route: IVP; Site: left antecubital; kr3 13:06 Drug: ProTONIX (pantoprazole) 8 mg/hr Route: IV; Rate: 25 ml/hr; Site: left antecubital;kr3 13:06 Drug: NS 0.9% 1000 ml Route: IV; Rate: 125 ml/hr; Site: left antecubital; kr3 Outcome: 13:53 ER care complete, transfer ordered by . marj 14:21 Decision to Hospitalize by Provider. marj 16:13 Discharge ordered by . marj 17:34 Discharged to home via ambulance. ss 17:34 Condition: on Hospice SEE [facility] note from Dr. Zavala 17:34 Instructed on discharge instructions, follow up and referral plans. 17:34 Patient left the ED. ss Signatures: Dispatcher [employer] EDGA Mehrdad Garza MD MD cha Smirch, Shelby, RN RN Zacarias Ayers, Yazmin Harvey RN Florina Lujan, TIFFANI RN kr3
[2022-02-12 14:46] LABS: Albumin 2.9 g/dL (3.4-5.0); Bilirubin Direct 0.2 mg/dL (0-0.2); Bilirubin Total 0.4 mg/dL (0.2-1.0); Magnesium 2.9 mg/dL (1.8-2.4); Potassium 3.4 mmol/L (3.5-5.1); Protein, Total 7.4 g/dL (6.4-8.2); Troponin High Sensitivity 45.6 pg/mL (<58.9)
[2022-02-12 14:51] LABS: Hematocrit 40.6 % (36.0-45.0); MCV 97.1 fL (80-100); MPV 8.3 fL (7.6-11.3); RBC Red Blood Cell Count 4.18 M/uL (3.86-4.86)
[2022-02-12 14:53] LABS: Protime INR 1.09
[2022-02-12] MEDS ORDERED: NA CHLORIDE 0.9% 100 ML IV ONE (16:02)
[2022-02-12] MEDS ORDERED: Meropenem 1000 MG/VIAL IV ONE (16:02)
--- NOTE | 2022-02-12 16:05 | P.CNS ---
Date of Consult: 02/12/22 Reason for Consult: Hospice Requesting Physician: Mehrdad Garza Chief Complaint: Melena History of Present Illness: Ms. Gwendolyn Guillory is a 86-year-old female who has a past medical history of advanced Alzheimer's dementia, bullous pemphigoid, asthma, and hypertension who presents to the [facility] Emergency Department for melena. History is extremely limited given her advanced dementia. History was obtained via discussion with her son, Mr. Vinny Guillory, who is at bedside. He reports that she lives at [facility] and he received a call earlier today that she has been having melenic stools. He reports that she has advanced dementia and has been progressively declining for some time now. He reports that she is no longer eating or drinking much. He states that he believes she would most likely wish to have comfort care at this point. He states that she would never want a PEG tube or any artificial means of nutrition. He states that she is a DO NOT RESUSCITATE. He requests assistance in enrolling in hospice services. He presented to the Emergency Department for further evaluation. Upon presentation, her vital signs were notable for a heart rate of 108 bpm. Her laboratory studies were notable for a WBC count of 15,000, sodium of 150, potassium of 3.4, chloride of 115, and a creatinine of 2.84 (baseline unknown). EKG was without STEMI criteria. Chest x-ray revealed, "no acute cardiopulmonary process. Chest findings are stable from December 31." CT abdomen/pelvis revealed, "Prominent diverticulosis in the sigmoid colon. No diverticulitis, mass or other acute colon finding. No abnormality seen to explain bloody stools. Complex cyst in the lower pole of the right kidney. This can be monitored with follow-up outpatient renal ultrasound. Nonobstructing staghorn type calcifications seen in the nondilated renal pelves and calices. Air is seen in the lumen of the urinary bladder. This is presumably from a catheterization procedure. Fish Nichelle or infectious etiology is not suspected. Air density adjacent to the proximal calculi may be a CT artifact or possibly retrograde movement of the air from the lumen of the bladder." In the Emergency Department, she was given 1 L Normal Saline and a pantoprazole drip. General Internal Medicine service was consulted further evaluation. Allergies Penicillins Allergy (Verified 11/29/14 12:44) Rash Home medications list reviewed: Yes Home Medications: Acetaminophen 2 tab PO Q6H PRN 06/20/20 Acetaminophen 2 tab PO TID 06/20/20 Calcium Carbonate/Vitamin D3 [Oyster Shell 500-Vit D3 200 Tb] 1 each PO DAILY 06/20/20 Docusate [Colace Cap*] 200 mg PO DAILY PRN #30 cap 06/20/20 Ferrous Sulfate 325 mg PO DAILY 06/20/20 Metoprolol Succinate 25 mg PO DAILY 06/20/20 Omeprazole 20 mg PO DAILY 06/20/20 Potassium Chloride 10 meq PO DAILY 06/20/20 Sertraline HCl 50 mg PO DAILY 06/20/20 Trazodone HCl 50 mg PO BEDTIME 06/20/20 predniSONE [Deltasone*] 10 mg PO DAILY 06/20/20 Ciprofloxacin HCl [Cipro] 500 mg PO BID #28 tab 01/03/22 Furosemide [Lasix] 20 mg PO DAILY #30 tab 01/03/22 - Past Medical/Surgical History Diabetic: No -: dementia -: asthma -: alzheimers -: anxiety -: HTN -: edema -: bullous pemphigoid -: eczema -: Hip Surgery Psychosocial/ Personal History: Family History - Unable to Obtain (dementia) - Social History Smoking Status: Unknown if ever smoked Alcohol use: No CD- Drugs: No Caffeine use: No Review of Systems is unable to be obtained Physical Examination Temperature: 98.2 F Heart rate: 108 bpm Blood pressure: 106/73 Respiratory rate: 18 breaths/min SPO2: 99%, room air General: Alert, In no apparent distress, Oriented x1 (self - baseline per son) HEENT: Atraumatic, PERRLA, Mucous membr. moist/pink, EOMI, Sclerae nonicteric Neck: Supple Respiratory: Clear to auscultation bilaterally, Normal air movement Cardiovascular: No edema, Regular rate/rhythm, Normal S1 S2, No gallops, No rubs, No murmurs Gastrointestinal: Normal bowel sounds, Soft and benign, Non-distended, No tenderness, No rebound, No guarding Musculoskeletal: No clubbing Integumentary: No rashes Neurological: Normal speech, Cranial nerves 3-12 intact, Normal affect Laboratory Data (last 24 hrs) 02/12/22 14:08: PT 12.0, INR 1.09 02/12/22 14:08: WBC 15.00 H, Hgb 13.1, Hct 40.6, Plt Count 309 02/12/22 14:08: Sodium 150 H, Potassium 3.4 L, BUN 48 H, Creatinine 2.84 H, Glucose 134 H, Magnesium 2.9 H, Total Bilirubin 0.4, AST 20, ALT 33, Alkaline Phosphatase 76, Lipase 142 Conclusions/Impression: ASSESSMENT: # Melena - possible Upper Gastrointestinal Bleed # Acute Kidney Injury # Hypernatremia and Hyperchloremia due to Dehydration # Advanced Alzheimer's Disease # Bullous Pemphigoid # Hypertension # Asthma # Diverticulosis # Complex Right Renal Cyst # Non-Obstructing Staghorn Calculus RECOMMENDATIONS: I had an extensive discussion with her son, Mr. Vinny Guillory, who is at bedside. He stated that his mother, Ms. Gwendolyn Guillory, has made it very clear in the past that she would not wish to pursue any aggressive therapy if she was to be in the condition that she is in now (i.e. advanced dementia and failure to thrive). I have reviewed our evaluation thus far with him and offered admission for IV fluids and monitoring her H&H with possible blood transfusions if indicated. I have also offered a Gastroenterology and Nephrology consultation, which he has declined. He stated that hospice services would be most consistent with her wishes. I have contacted our caser in, Ms. Sahu, who has arranged for her to be discharged with hospice services. - Prior to discharge: - Consider 1 additional L of Lactated Ringers' - Consider prescribing pantoprazole 40 mg BID These recommendations have been discussed with Dr. Garza. If her son changes his mind and would like for her to be admitted, I would be happy to admit her. Thank you for this consultation. Blue Zavala M.D.
[2022-02-12] MEDS ORDERED: Ringers Lactate 1,000 ML IV ONE (16:06)
[2022-02-12 18:14] VITALS: BP 106/73; TEMP 98.2; O2SAT 99
--- NOTE | 2022-02-13 19:12 | EKG ---
Test Date: 2022-02-12 Test Time: 13:05:53 Official Greeter: NGUYỄN MEASUREMENT RESULTS: Intervals: Rate: 84 LA: 136 QRSD: 72 QT: 404 QTc: 477 Kent: P: 94 LA: 136 QRS: 18 T: 16 INTERPRETIVE STATEMENTS: Normal sinus rhythm Normal ECG Compared to ECG 03/22/2021 09:24:06 No significant changes Electronically Signed On 02-13-22 19:10:29 PATIENT ACCESS COORDINATOR by Jadiel Zhou
== END 2022-02-12 17:34 | disposition home or self-care (01) ==
LOC: ER 10:10
DX: K92.2 Gastrointestinal hemorrhage, unspecified (principal); U07.1 COVID-19; N39.0 Urinary tract infection, site not specified; N17.9 Acute kidney failure, unspecified; E86.0 Dehydration; E87.6 Hypokalemia; D72.829 Elevated white blood cell count, unspecified; N10 Acute pyelonephritis; G30.9 Alzheimer's disease, unspecified; F02.80 Dementia in other diseases classified elsewhere, unspecified severity, without behavioral disturbance, psychotic disturbance, mood disturbance, and anxiety; I10 Essential (primary) hypertension; Z88.0 Allergy status to penicillin; Z88.6 Allergy status to analgesic agent
CPT/HCPCS: 36415; 71045; 74176; 80048; 80076; 83690; 83735; 83880; 84484; 85025; 85610; 86850; 86900; 86901; 87811; 93005; 96374; 99283; C9113; J2185; J7030; J7050